=== PATIENT | male | born 1965 | race African-American/Black ===

== ENCOUNTER 2017-05-31 09:21 | Emergency (ER) | payer OTHER ==
--- NOTE | 2017-05-31 09:36 | PDOC ---
History of Present Illness - General History Source: Patient Exam Limitations: No Limitations - History of Present Illness Initial Comments: 05/31/17 11:15 The patient is a 51-year-old male with no significant past medical history, who presents to the emergency department with chest tightness, cough, weakness, and diffuse abdominal pain for 3 days. He reports he passed out this morning in his room, and was laying on the floor when he woke up. He denies head trauma, LOC, or confusion. He reports of associated headache, nausea, as well as subjective fever upon arrival to the ER today. He has been taking marge seltzer and Dayquil. He is able to tolerate food. The patient denies shortness of breath and dizziness. The patient denies chills , rhinorrhea, vomit, diarrhea and constipation. The patient denies dysuria, frequency, urgency and hematuria. Allergies: NKDA Past Surgical History: None reported Social History: No toxic habits reported <Yessi Noguera - Last Filed: 05/31/17 11:14> <Diamante Farah - Last Filed: 05/31/17 11:30> - General Chief Complaint: Vomiting/Diarrhea Stated Complaint: SICK Time Seen by Provider: 05/31/17 09:35 Past History <Yessi Noguera - Last Filed: 05/31/17 11:14> <Diamante Farah - Last Filed: 05/31/17 11:30> - Past Medical History Allergies/Adverse Reactions: Allergies Allergy/AdvReac Type Severity Reaction Status Date / Time No Known Allergies Allergy Verified 05/31/17 09:41 Home Medications: Ambulatory Orders Oseltamivir Phosphate [Tamiflu] 75 mg PO BID #10 capsule 05/31/17 Review of Systems - Review of Systems Able to Perform ROS?: Yes Comments:: 05/31/17 11:15 GENERAL/CONSTITUTIONAL: No fever or chills. (+) Weakness. HEAD, EYES, EARS, NOSE AND THROAT: No change in vision. No ear pain or discharge. No sore throat. CARDIOVASCULAR: (+) Chest pain. No shortness of breath. RESPIRATORY: (+) Cough. No wheezing, or hemoptysis. GASTROINTESTINAL: (+) Nausea. (+) Abdominal pain. No vomiting, diarrhea or constipation. GENITOURINARY: No dysuria, frequency, or change in urination. MUSCULOSKELETAL: No joint or muscle swelling or pain. No neck or back pain. SKIN: No rash NEUROLOGIC: (+) Headache. No vertigo, loss of consciousness, or change in strength/sensation. ENDOCRINE: No increased thirst. No abnormal weight change. HEMATOLOGIC/LYMPHATIC: No anemia, easy bleeding, or history of blood clots. ALLERGIC/IMMUNOLOGIC: No hives or skin allergy. <ChuckieYessi - Last Filed: 05/31/17 11:14> *Physical Exam - Vital Signs Last Vital Signs Temp Pulse Resp BP Pulse Ox 100.0 F H 103 H 18 165/89 100 05/31/17 09:25 05/31/17 09:25 05/31/17 09:25 05/31/17 09:25 05/31/17 09:25 - Physical Exam Comments: 05/31/17 11:15 GENERAL: Awake, alert, and fully oriented, in no acute distress HEAD: No signs of trauma EYES: PERRLA, EOMI, sclera anicteric, conjunctiva clear ENT: Auricles normal inspection, hearing grossly normal, nares patent, oropharynx clear without exudates. Moist mucosa NECK: Normal ROM, supple, no lymphadenopathy, JVD, or masses LUNGS: Breath sounds equal, clear to auscultation bilaterally. No wheezes, and no crackles HEART: Regular rate and rhythm, normal S1 and S2, no murmurs, rubs or gallops ABDOMEN: Soft, nontender, normoactive bowel sounds. No guarding, no rebound. No masses EXTREMITIES: Normal range of motion, no edema. No clubbing or cyanosis. No cords, erythema, or tenderness NEUROLOGICAL: Cranial nerves II through XII grossly intact. Normal speech, normal gait. SKIN: Warm, Dry, normal turgor, no rashes or lesions noted. <Fior Nogueranda - Last Filed: 05/31/17 11:14> ED Treatment Course - LABORATORY CBC & Chemistry Diagram: 05/31/17 09:47 05/31/17 09:47 - ADDITIONAL ORDERS Additional order review: Laboratory Results 05/31/17 09:47 Sodium 138 Potassium 3.3 L Chloride 100 Carbon Dioxide 25 Anion Gap 13 BUN 11 Creatinine 1.4 H Creat Clearance w eGFR 53.01 Random Glucose 107 H Calcium 9.2 Total Bilirubin 0.6 AST 29 ALT 38 Alkaline Phosphatase 56 Creatine Kinase 338 H Creatine Kinase Index 0.2 CK-MB (CK-2) < 1.000 Troponin I < 0.02 Total Protein 7.9 Albumin 3.9 05/31/17 09:47 Influenza Types A,B Antigen (DAVIS) - Final Nasopharyngeal Swab - Final 05/31/17 09:47 RBC 5.32 MCV 85.9 MCHC 34.5 RDW 13.6 MPV 8.7 Neutrophils % 68.4 Lymphocytes % 20.1 Monocytes % 10.2 Eosinophils % 0.6 Basophils % 0.7 - Medications Given in the ED: ED Medications Discontinued Medications Generic Name Dose Route Start Last Admin Trade Name Freq PRN Reason Stop Dose Admin Ketorolac Tromethamine 30 mg 05/31/17 09:43 05/31/17 10:03 Toradol Injection - IVPUSH 05/31/17 09:44 30 mg ONCE ONE Administration Sodium Chloride 1,000 ml 05/31/17 09:43 05/31/17 10:03 Normal Saline - IV 05/31/17 09:44 1,000 ml ONCE ONE Administration <Yessi Noguera - Last Filed: 05/31/17 11:14> - LABORATORY CBC & Chemistry Diagram: 05/31/17 09:47 05/31/17 09:47 <Diamante Farah - Last Filed: 05/31/17 11:30> Medical Decision Making - Medical Decision Making 05/31/17 10:37 Pt presents to the ED complaining of a 4 day history of generalized malaise, mylagias, productive cough, chest tightness and nasal congestion. Also reports episode of syncope. Differential includes flu or other viral infection, PNA, less likely ACS or arrythmia. Will check labs and cxr, EKG and reassess. 05/31/17 11:25 Labs are negative except for influenza. Will treat with tamiflu. Will discharge home. <Diamante Farah - Last Filed: 05/31/17 11:30> *DC/Admit/Observation/Transfer - Attestations Scribe Attestion: 05/31/17 11:16 Documentation prepared by Yessi Noguera, acting as medical officer for Diamante Farah MD, /DO. <Yessi Noguera - Last Filed: 05/31/17 11:14> - Discharge Dispostion Admit: No <Diamante Farah - Last Filed: 05/31/17 11:30> Diagnosis at time of Disposition: Influenza - Discharge Dispostion Disposition: HOME Condition at time of disposition: Good - Prescriptions Prescriptions: Oseltamivir Phosphate [Tamiflu] 75 mg PO BID #10 capsule - Patient Instructions Printed Discharge Instructions: DI for Influenza -- Adult Additional Instructions: return to the Ed for passing out, persistent fever after 6 days, severe abdominal pain, severe nausea and vomiting unable to keep fluids down, other new or changing symptoms. Follow up with your doctor.
[2017-05-31 09:39] VITALS: BMI 31.3
[2017-05-31] MEDS ORDERED: SODIUM CHLORIDE 0.9% 1000 ML INFUS.BAG IV ONE (09:43)
[2017-05-31] MEDS ORDERED: KETOROLAC TROMETHAMINE 30 MG/1 ML VIAL IVPUSH ONE (09:43)
[2017-05-31] MEDS ORDERED: KETOROLAC TROMETHAMINE 30 MG/1 ML VIAL ONE (09:51)
[2017-05-31 10:07] LABS: BASO % 0.7 % (0-2.0); EOS % 0.6 % (0-4.5); HEMATOCRIT 45.7 % (35.4-49); HEMOGLOBIN 15.8 GM/dL (11.7-16.9); LYMPH % 20.1 % (8-40); MCH 29.6 pg (25.7-33.7); MCHC 34.5 g/dl (32.0-35.9); MEAN CELL VOLUME 85.9 fl (80-96); MEAN PLT VOLUME 8.7 fl (7.5-11.1); MONO % 10.2 % (3.8-10.2); NEUT % 68.4 % (42.8-82.8); PLATELET COUNT 164 K/MM3 (134-434); RBC 5.32 M/mm3 (4.00-5.60); RDW 13.6 % (11.9-15.9); WHITE BLOOD COUNT 8.2 K/mm3 (4.0-10.0)
[2017-05-31 10:32] LABS: ALBUMIN 3.9 g/dl (3.4-5.0); ANION GAP 13 (8-16); BILIRUBIN,TOTAL 0.6 mg/dL (0.2-1.0); BLOOD UREA NITROGEN 11 mg/dL (7-18); CALCIUM 9.2 mg/dL (8.5-10.1); CHLORIDE 100 mmol/L (98-107); CO2 25 mmol/L (21-32); CREATININE 1.4 mg/dL (0.7-1.3); GLUCOSE,RANDOM 107 mg/dL (74-106); POTASSIUM 3.3 mmol/L (3.5-5.1); SGOT/AST 29 U/L (15-37); SGPT/ALT 38 U/L (12-78); SODIUM 138 mmol/L (136-145); TOT PROT 7.9 g/dl (6.4-8.2)
[2017-05-31 10:34] LABS: ALK PHOS 56 U/L (45-117)
[2017-05-31] MEDS ORDERED: OSELTAMIVIR PHOSPHATE 75 MG CAPSULE ONE (11:18)
[2017-05-31 11:26] VITALS: BP 149/92; PULSE 93; TEMP 99.9
[2017-05-31] MEDS ORDERED: OSELTAMIVIR PHOSPHATE 75 MG CAPSULE PO ONE (11:30)
--- NOTE | 2017-05-31 14:12 | EKG ---
Test Reason : Blood Pressure : / mmHG Vent. Rate : 105 BPM Atrial Rate : 105 BPM P-R Int : 140 ms QRS Dur : 084 ms QT Int : 346 ms P-R-T Axes : 037 -20 -08 degrees QTc Int : 457 ms SINUS TACHYCARDIA OTHERWISE NORMAL ECG NO PREVIOUS ECGS AVAILABLE BASELINE ARTIFACT Confirmed by ANNA SANCHEZ, RG ([id number]) on 05/31/2017 2:11:34 PM Referred By: Confirmed By:RG CASTILLO MD
== END 2017-05-31 11:47 | disposition home or self-care (01) ==
LOC: JER 09:21
PROC: 3E0333Z Introduction of Anti-inflammatory into Peripheral Vein, Percutaneous Approach (ICD-10-PCS; principal; 2017-05-31)
DX: J10.1 Influenza due to other identified influenza virus with other respiratory manifestations (principal)
CPT/HCPCS: 36415; 71046-TC; 80053; 82550; 82553; 84484; 85025; 87804; 93005; 93010; 99283-25

== ENCOUNTER 2018-06-20 17:15 | Emergency (ER) | payer OTHER ==
--- NOTE | 2018-06-20 17:21 | PDOC ---
Rapid Medical Evaluation Time Seen by Provider: 06/20/18 17:17 Medical Evaluation: Allergies Allergy/AdvReac Type Severity Reaction Status Date / Time No Known Allergies Allergy Verified 05/31/17 09:41 06/20/18 17:18 Pt presents to the ED for dizziness since this morning. States he vomited once. Feels like the room is spinning around him. Exam: No gross neuro deficits Orders: labs Pt to proceed to the ED for further evaluation Discharge Disposition - Diagnosis Dizziness - Referrals - Patient Instructions - Post Discharge Activity
[2018-06-20 17:22] VITALS: BMI 27.5
[2018-06-20] MEDS ORDERED: MECLIZINE HCL 25 MG TABLET (FP) PO ONE (17:47)
--- NOTE | 2018-06-20 18:03 | PDOC ---
History of Present Illness - General Chief Complaint: Lightheaded Stated Complaint: DIZZY Time Seen by Provider: 06/20/18 17:17 History Source: Patient Exam Limitations: No Limitations - History of Present Illness Initial Comments: 06/20/18 17:57 Pt is a 52yo M with no significant PMH presenting to ED with complaints of dizziness. Pt said around 7:30 this am he started feeling like the room was spinning. He went home to sleep it off but he still felt the same way when he woke up. He had one episode of nbnb emesis, endorses fullness and slight tinnitus L>R ear, Headache. He denies trauma, chest pain, SOB, abdominal pain, nausea, syncope, palpitations, fevers, chills. He had a similar symptoms a couple of weeks ago but states he went to sleep and symptoms resolved when he woke up. PMD: [place]? PMH: see hpi Meds: None Allergies: nkda Past History - Past Medical History Allergies/Adverse Reactions: Allergies Allergy/AdvReac Type Severity Reaction Status Date / Time No Known Allergies Allergy Verified 05/31/17 09:41 Home Medications: Ambulatory Orders Oseltamivir Phosphate [Tamiflu] 75 mg PO BID #10 capsule 05/31/17 Meclizine HCl 25 mg PO BID #14 tablet 06/20/18 COPD: No Thyroid Disease: No - Suicide/Smoking/Psychosocial Hx Smoking History: Never smoked Have you smoked in the past 12 months: No Hx Alcohol Use: Yes (Social) Drug/Substance Use Hx: No Substance Use Type: None Review of Systems - Review of Systems Constitutional: No: Chills, Fever, Weakness HEENTM: Yes: See HPI, Tinnitus. No: Eye Pain, Blurred Vision, Double Vision, Ear Pain, Ear Discharge, Nose Pain, Nose Congestion, Hearing Loss, Throat Pain, Mouth Pain Respiratory: No: Cough, Shortness of Breath, Wheezing Cardiac (ROS): No: Chest Pain, Irregular Heart Rate, Lightheadedness, Palpitations, Syncope ABD/GI: Yes: See HPI, Vomiting. No: Constipated, Diarrhea, Nausea, Rectal Bleeding, Abdominal cramping : No: Symptoms Reported Musculoskeletal: No: Back Pain, Neck Pain Integumentary: No: Symptoms Reported Neurological: Yes: See HPI, Headache, Dizziness. No: Numbness, Tingling, Tremors, Weakness, Ataxia *Physical Exam - Vital Signs Last Vital Signs Temp Pulse Resp BP Pulse Ox 98.3 F 76 20 148/93 100 06/20/18 17:16 06/20/18 17:16 06/20/18 17:16 06/20/18 17:16 06/20/18 17:16 - Physical Exam General Appearance: Yes: Nourished, Appropriately Dressed. No: Apparent Distress HEENT: positive: EOMI (illicited feelings of vertigo), RAO, Normal ENT Inspection, TMs Normal, Hearing Grossly Normal, Other (No nystagmus.) Neck: positive: Trachea midline, Supple. negative: Carotid bruit, Lymphadenopathy (R), Lymphadenopathy (L) Respiratory/Chest: positive: Lungs Clear, Normal Breath Sounds. negative: Crackles, Rales, Rhonchi, Stridor, Wheezing Cardiovascular: positive: Regular Rhythm, Regular Rate, S1, S2. negative: Edema , JVD, Murmur Vascular Pulses: Carotid (R): 2+, Carotid (L): 2+, Dorsalis-Pedis (R): 2+, Doralis-Pedis (L): 2+ Gastrointestinal/Abdominal: positive: Normal Bowel Sounds, Soft. negative: Distended, Guarding, Rebound, Tenderness Musculoskeletal: positive: Normal Inspection. negative: CVA Tenderness Extremity: positive: Normal Capillary Refill, Normal Inspection. 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 NML intact, Fully Oriented, Alert, Normal Mood/ Affect, Normal Response, Motor Strength 5/5 Moderate Sedation - Procedure Monitoring Vital Signs: Procedure Monitoring Vital Signs Temperature 98.3 F 06/20/18 17:16 Pulse Rate 76 06/20/18 17:16 Respiratory Rate 20 06/20/18 17:16 Blood Pressure 148/93 06/20/18 17:16 O2 Sat by Pulse Oximetry (%) 100 06/20/18 17:16 ED Treatment Course - LABORATORY CBC & Chemistry Diagram: 06/20/18 18:13 06/20/18 18:13 Medical Decision Making - Medical Decision Making 06/20/18 18:00 Pt is a 52yo M with no significant PMH presenting to ED with complaints of dizziness. Pt said around 7:30 this am he started feeling like the room was spinning. Was here recently and diagnosed with flu. Went to PMD a couple of days ago and was told he might have sinusitis. Not on Abx. Vitals: wnl PE: benign. High suspicion for peripheral vertigo, could be due to labrinthytis. EKG, CBC and CMP ordered by RMMatt. Trop added. Will order CT head and Sinus. -Meclizine and Tylenol. -Will reassess 06/20/18 20:09 CT head and sinus normal. All labs wnl. Pt states "dizziness is gone" after receiving meclizine. Low suspicion for central vertigo. Pt has PMD follow up, is ambulatory and does not have dizziness. Can be dc home. Will give Rx for meclizine. *DC/Admit/Observation/Transfer Diagnosis at time of Disposition: Dizziness - Discharge Dispostion Disposition: HOME Condition at time of disposition: Improved Decision to Admit order: No - Prescriptions Prescriptions: Meclizine HCl 25 mg PO BID #14 tablet - Referrals Referrals: [facility] [Non Staff, Medical] - - Patient Instructions Printed Discharge Instructions: Vertigo Additional Instructions: You were seen in the emergency room for dizziness. You have vertigo. A prescription for meclizine was sent to your pharmacy. Please take as directed when you experience vertigo. Make sure you make an appointment with your primary care doctor soon. Come back to the emergency room if the dizziness gets worse, you pass out, you have weakness in your arms or legs, you have changes in vision, you have chest pain or if any new concerning symptom develops. Thank you - Post Discharge Activity
[2018-06-20 18:23] LABS: BASO % 0.3 % (0-2.0); EOS % 1.8 % (0-4.5); HEMATOCRIT 46.3 % (35.4-49); LYMPH % 26.1 % (8-40); MCH 30.3 pg (25.7-33.7); MCHC 34.6 g/dl (32.0-35.9); MEAN CELL VOLUME 87.7 fl (80-96); MEAN PLT VOLUME 8.5 fl (7.5-11.1); MONO % 5.2 % (3.8-10.2); NEUT % 66.6 % (42.8-82.8); PLATELET COUNT 217 K/MM3 (134-434); RBC 5.28 M/mm3 (4.00-5.60); RDW 13.4 % (11.9-15.9); WHITE BLOOD COUNT 10.2 K/mm3 (4.0-10.0)
[2018-06-20] MEDS ORDERED: ACETAMINOPHEN 500 MG TABLET (FP) PO ONE (18:42)
[2018-06-20 18:46] LABS: ALBUMIN 3.9 g/dl (3.4-5.0); ALK PHOS 57 U/L (45-117); ANION GAP 8 MMOL/L (8-16); BILIRUBIN,TOTAL 0.5 mg/dL (0.2-1); BLOOD UREA NITROGEN 14 mg/dL (7-18); CALCIUM 8.7 mg/dL (8.5-10.1); CHLORIDE 106 mmol/L (98-107); CO2 27 mmol/L (21-32); CREATININE 1.1 mg/dL (0.55-1.3); GLUCOSE,RANDOM 136 mg/dL (74-106); POTASSIUM 3.5 mmol/L (3.5-5.1); SGOT/AST 22 U/L (15-37); SGPT/ALT 38 U/L (13-61); SODIUM 141 mmol/L (136-145); TOT PROT 7.5 g/dl (6.4-8.2)
[2018-06-20] MEDS ORDERED: ACETAMINOPHEN 325 MG TABLET (FP) ONE (19:02)
[2018-06-20] MEDS ORDERED: MECLIZINE HCL 25 MG TABLET (FP) ONE (19:03)
--- NOTE | 2018-06-20 19:09 | PDOC ---
Attending Attestation - [facility] HPI: 06/20/18 19:09 The patient is a 52 year old male, with no significant past medical hx, who presents to the emergency department complaining of dizziness that he describes as a spinning feeling, that began at 7:30 am today. The patient reports 1 episode of vomiting, nonbilious and nonbloody, and mild headache.The patient notes that he tried to sleep but it did not alleviate his presenting symptoms. The patient reports a similar experience two weeks ago where he felt the room spinning, however sleep did alleviate the prior symptoms.The patient notes he is experiencing associated fullness and ringing in his LT ear. Patient denies numbness and paresthesia. He denies vision changes. He denies any recent fever, chills, or recent cold. He denies any head trauma or neck pain. He denies any recent chest pain, shortness of breath, or syncopal episode. Allergies: NKA Past surgical history: None reported. Social History: Nonsmoker. Denies EtOH use and recreational drug use - Physicial Exam PE: 06/20/18 19:10 GENERAL: Well developed, well nourished. Awake and alert. No acute distress. HEENT: Normocephalic, atraumatic. PERRLA, EOMI. No conjunctival pallor. Sclera are non- icteric. Moist mucous membranes. Oropharynx is clear. NECK: Supple. Full ROM. No JVD. Carotid pulses 2+ and symmetric, without bruits. No thyromegaly. No lymphadenopathy. CARDIOVASCULAR: Regular rate and rhythm. No murmurs, rubs, or gallops. Distal pulses are 2+ and symmetric. PULMONARY: No evidence of respiratory distress. Lungs clear to auscultation bilaterally. No wheezing, rales or rhonchi. ABDOMINAL: Soft. Non-tender. Non-distended. No rebound or guarding. No organomegaly. Normoactive bowel sounds. MUSCULOSKELETAL Normal range of motion at all joints. No bony deformities or tenderness. No CVA tenderness. EXTREMITIES: No cyanosis. No clubbing. No edema. No calf tenderness. SKIN: Warm and dry. Normal capillary refill. No rashes. No jaundice. NEUROLOGICAL: Alert, awake, appropriate. Cranial nerves 2-12 intact. No deficits to light touch and temperature in face, upper extremities and lower extremities. No motor deficits in the in face, upper extremities and lower extremities. Normoreflexic in the upper and lower extremities. Normal speech. Toes are down- going bilaterally. No nystagmus. PSYCHIATRIC: Cooperative. Good eye contact. Appropriate mood and affect. <Tonia Blank - Last Filed: 06/20/18 19:09> - Resident Resident Name: Emily Ward - ED Attending Attestation I have performed the following: I have examined & evaluated the patient, The case was reviewed & discussed with the resident, I agree w/resident's findings & plan, Exceptions are as noted - Medical Decision Making 06/20/18 19:12 52-year-old male presents with cold complaint of the room spinning associated with episode of nausea and vomiting. He said that he was so severe he couldn't walk and he could not drive himself. He went home to bed to sleep it off because several weeks ago he had a prior episode that resolved after he has had for some time. He denies fever, chills or severe upper respiratory infections or nasal congestion. Please see his physician in the past week for a routine physical exam 06/20/18 20:02 CAT scan of the sinuses showed some ethmoidal thickening with there was no acute sinusitis noted. CAT scan of the head did not show any acute intracranial pathology, no masses, no infarct, no bleed, no midline shift, no skull fracture 06/20/18 20:02 CBC was unremarkable. Chemistries were reviewed, and glucose slightly elevated at 136. his prior glucose was 107 Prior creatinine was 1.4 and today's creatinine is 1.1. Troponin is negative 06/20/18 20:44 pt;s symptoms resolved with antivert and pt discharged home imp VERTIGO <Radha Gunter - Last Filed: 06/20/18 20:46> Attestations - Attestations 06/20/18 19:11 Documentation prepared by Tonia Blank, acting as medical records field technician for Radha Gunter MD. <Tonia Blank - Last Filed: 06/20/18 19:09>
[2018-06-20 20:37] VITALS: BP 130/86; PULSE 70; TEMP 98.2
--- NOTE | 2018-06-21 16:45 | EKG ---
Test Reason : Blood Pressure : / mmHG Vent. Rate : 080 BPM Atrial Rate : 080 BPM P-R Int : 146 ms QRS Dur : 090 ms QT Int : 382 ms P-R-T Axes : 061 -21 006 degrees QTc Int : 440 ms NORMAL SINUS RHYTHM LEFT ATRIAL ENLARGEMENT NONSPECIFIC ST ABNORMALITY ABNORMAL ECG Confirmed by MD OLYA, RENETTA ([id number]) on 06/21/2018 4:45:35 PM Referred By: Confirmed By:RENETTA DOBSON MD
== END 2018-06-20 20:37 | disposition home or self-care (01) ==
LOC: JER 17:15
DX: R42 Dizziness and giddiness (principal)
CPT/HCPCS: 36415; 70450-TC; 70486-TC; 80053; 84484; 85025; 93005; 93010; 99282-25

== ENCOUNTER 2018-11-24 00:28 | Emergency (ER) | payer OTHER ==
[2018-11-24 01:06] VITALS: BMI 28.1
--- NOTE | 2018-11-24 01:39 | PDOC ---
History of Present Illness - General Chief Complaint: Pain, Acute Stated Complaint: PAIN, LT SIDE Time Seen by Provider: 11/24/18 01:28 History Source: Patient Exam Limitations: No Limitations - History of Present Illness Initial Comments: 52 yo m who denies having any medical hx presents to the ER with 4 days of worsening LLQ Abdominal pain. The patient states the pain is on and off and when it comes on it is a 9/10 in intensity and he describes the pain as a sharp burning sensation in character. The patient states the pain does not radiate to his flank or down to his groin. the patient denies any nausea or vomiting. He endorses 3 episodes of diarrhea since Wednesday when the pain began. The patient denies recent fevers, chills, or infections. Last bowel movement was this morning and it was loose. PCP: Does not remember name. States he is across the street at [facility]. PSH: None reported Social Hx: Drinks recreationally. Smokes cigars. Denies cigarette or other substance usage. Allergies: NKA, NKDA Past History - Past Medical History Allergies/Adverse Reactions: Allergies Allergy/AdvReac Type Severity Reaction Status Date / Time No Known Allergies Allergy Verified 11/24/18 01:10 Home Medications: Ambulatory Orders NK [No Known Home Medication] 11/24/18 COPD: No Thyroid Disease: No - Suicide/Smoking/Psychosocial Hx Smoking History: Never smoked Have you smoked in the past 12 months: No Information on smoking cessation initiated: No Hx Alcohol Use: No Drug/Substance Use Hx: No Substance Use Type: None Review of Systems - Review of Systems Able to Perform ROS?: Yes Comments:: CONSTITUTIONAL: Absent: fever, no chills, no fatigue EYES: Absent: visual changes ENT: Absent: ear pain, no sore throat CARDIOVASCULAR: Absent: chest pain, no palpitations RESPIRATORY: Absent: cough, no SOB GI: Present: Abdominal pain, diarrhea. Absent: no nausea, no vomiting, no constipation GENITOURINARY: Absent: dysuria, no frequency, no hematuria MUSKULOSKELETAL: Absent: back pain, no arthralgia, no myalgia SKIN: Absent: rash NEURO: Absent: headache *Physical Exam - Vital Signs Last Vital Signs Temp Pulse Resp BP Pulse Ox 99 F 89 19 155/99 11/24/18 00:28 11/24/18 00:28 11/24/18 00:28 11/24/18 00:28 - Physical Exam Comments: GENERAL: Well-appearing, well-nourished. No apparent distress. HEENT: Normocephalic, atraumatic. PERRL, EOM intact. CARDIOVASCULAR: Normal S1, S2. Regular rate and rhythm. PULMONARY: No evidence of respiratory distress. Lungs clear to auscultation bilaterally. No wheezing, rales or rhonchi. ABDOMEN: Mild LLQ abdominal TTP. Normal bowel sounds. Abdomen is soft and non-distended. No rebound or guarding. No organomegaly. EXTREMITIES: Normal ROM in all four extremities. No gross deformities. SKIN: Warm, dry. No rash NEUROLOGICAL: No focal neurological deficits. ED Treatment Course - LABORATORY CBC & Chemistry Diagram: 11/24/18 02:14 11/24/18 02:14 Medical Decision Making - Medical Decision Making 52 yo m who denies having any medical hx presents to the ER with 4 days of worsening LLQ Abdominal pain. The patient states the pain is on and off and when it comes on it is a 9/10 in intensity and he describes the pain as a sharp burning sensation in character. The patient states the pain does not radiate to his flank or down to his groin. the patient denies any nausea or vomiting. He endorses 3 episodes of diarrhea since Wednesday when the pain began. The patient denies recent fevers, chills, or infections. Last bowel movement was this morning and it was loose. Vital Signs Temp Pulse Resp BP Pulse Ox 98.1 F 83 18 159/95 96 11/24/18 01:05 11/24/18 01:05 11/24/18 01:05 11/24/18 01:05 11/24/18 01:05 DDx IBNLT: Diverticulitis, Colitis, UTI/Pylo, renal colic, electrolyte/ metabolic disturbance Plan: Labs, Urine, EKG, CTAP, analgesia, IV hydration, re-assess. Labs unremarkable CTAP: Suggests mesenteric adenitis Will DC patient with PCP fu *DC/Admit/Observation/Transfer Diagnosis at time of Disposition: Abdominal pain, Mesenteric adenitis, Colitis - Discharge Dispostion Disposition: HOME Condition at time of disposition: Improved Decision to Admit order: No - Referrals Referrals: [facility] [place] [Provider Group] - Patient Instructions Printed Discharge Instructions: DI for Mesenteric Adenitis-Adult, DI for Abdominal Pain-Adult, DI for Colitis Additional Instructions: You came into the ER with abdominal pain. We looked at your blood and found no abnormalities. We did a cat scan which showed your mesenteric lymph nodes are inflamed. You likely have mesenteric adenitis. Please see attached handout for further explanation. Please make sure to follow up with your PCP in the next 3 to 5 days to make sure you are getting better and being taken care of. Come back to the ER immediately if your pain worsens, you get a fever, start vomiting, or have any other new or worsening concerns. Thank you for coming to the [facility] ER. We hope you feel better soon! Print Language: IRISH - Post Discharge Activity
[2018-11-24 01:44] VITALS: BP 159/95; PULSE 83; TEMP 98.1
--- NOTE | 2018-11-24 01:45 | PDOC ---
Attending Attestation - Resident Resident Name: Lexa Gamboa - ED Attending Attestation I have performed the following: I have examined & evaluated the patient, I agree w/resident's findings & plan - HPI HPI: 11/24/18 02:47 52-year-old male with left lower quadrant abdominal pain and diarrhea - Physicial Exam PE: 11/24/18 02:48 GENERAL: Awake, in no acute distress HEAD: No signs of trauma EYES: ENT:clear without exudates. Moist mucosa NECK: Normal ROM, LUNGS:. Normal work of breathing. HEART: Regular rate and rhythm, ABDOMEN: Soft, nondistended , tenderness llq with voluntary guarding CHEST WALL: BACK: No midline tenderness. EXTREMITIES:. No erythema, or tenderness NEUROLOGICAL: Alert, SKIN: Warm, Dry - Medical Decision Making 11/24/18 02:48 52-year-old male with left lower quadrant abdominal pain, IV fluids, analgesics Plan for CT scan and labs to evaluate for surgical cause of pain with likely DC home pending results
[2018-11-24] MEDS ORDERED: SODIUM CHLORIDE 1,000 ML IV STA (01:49)
[2018-11-24] MEDS ORDERED: ACETAMINOPHEN 325 MG TABLET (FP) PO ONE (01:50)
[2018-11-24 02:26] LABS: EPI CELLS 0.5 /HPF (0-5/HPF); HYALINE CASTS 2 /lpf (0-8); URINE APPEARANCE CLEAR; URINE BACTERIA 2.4 /hpf (NEGATIVE); URINE BILIRUBIN NEGATIVE (NEGATIVE); URINE COLOR YELLOW; URINE GLUCOSE (UA) NEGATIVE (NEGATIVE); URINE KETONE NEGATIVE (NEGATIVE); URINE LEUK ESTERASE NEGATIVE (NEGATIVE); URINE NITRITE NEGATIVE (NEGATIVE); URINE PROTEIN NEGATIVE (NEGATIVE); URINE RBC 8 /hpf (0-4); URINE UROBILINOGEN 0.2 mg/dL (0.2-1.0); URINE WBC 1 /hpf (0-5)
[2018-11-24 02:42] LABS: BASO % 0.6 % (0-2.0); EOS % 1.7 % (0-4.5); HEMATOCRIT 46.8 % (35.4-49); HEMOGLOBIN 15.7 GM/dL (11.7-16.9); MCH 29.6 pg (25.7-33.7); MCHC 33.6 g/dl (32.0-35.9); MEAN CELL VOLUME 88.1 fl (80-96); MEAN PLT VOLUME 9.1 fl (7.5-11.1); MONO % 9.5 % (3.8-10.2); NEUT % 65.2 % (42.8-82.8); PLATELET COUNT 178 K/MM3 (134-434); RBC 5.31 M/mm3 (4.00-5.60); RDW 13.7 % (11.9-15.9); WHITE BLOOD COUNT 7.8 K/mm3 (4.0-10.0)
[2018-11-24] MEDS ORDERED: ACETAMINOPHEN 325 MG TABLET (FP) ONE (02:45)
[2018-11-24 02:52] LABS: ALBUMIN 4.2 g/dl (3.4-5.0); ALK PHOS 60 U/L (45-117); ANION GAP 6 MMOL/L (8-16); BILIRUBIN,TOTAL 0.4 mg/dL (0.2-1); BLOOD UREA NITROGEN 13.4 mg/dL (7-18); CALCIUM 9.2 mg/dL (8.5-10.1); CHLORIDE 106 mmol/L (98-107); CO2 30 mmol/L (21-32); CREATININE 1.3 mg/dL (0.55-1.3); GLUCOSE,RANDOM 93 mg/dL (74-106); LIPASE 94 U/L (73-393); POTASSIUM 3.6 mmol/L (3.5-5.1); SGOT/AST 23 U/L (15-37); SGPT/ALT 32 U/L (13-61); SODIUM 142 mmol/L (136-145); TOT PROT 8.1 g/dl (6.4-8.2)
[2018-11-24 02:53] LABS: INR 1.1 (0.83-1.09)
[2018-11-24] MEDS ORDERED: KETOROLAC TROMETHAMINE 30 MG/1 ML VIAL IVPUSH ONE (04:27)
[2018-11-24] MEDS ORDERED: KETOROLAC TROMETHAMINE 30 MG/1 ML VIAL ONE (04:54)
--- NOTE | 2018-11-24 13:38 | EKG ---
Test Reason : Blood Pressure : / mmHG Vent. Rate : 086 BPM Atrial Rate : 086 BPM P-R Int : 144 ms QRS Dur : 086 ms QT Int : 384 ms P-R-T Axes : 048 -26 005 degrees QTc Int : 459 ms NORMAL SINUS RHYTHM NORMAL ECG WHEN COMPARED WITH ECG OF 20-JUN-2018 17:41, NO SIGNIFICANT CHANGE WAS FOUND Confirmed by MELBA PORTER MD ([id number]) on 11/24/2018 1:37:54 PM Referred By: Confirmed By:MELBA PORTER MD
== END 2018-11-24 05:08 | disposition home or self-care (01) ==
LOC: JER 00:28
PROC: 3E0337Z Introduction of Electrolytic and Water Balance Substance into Peripheral Vein, Percutaneous Approach (ICD-10-PCS; principal; 2018-11-24)
PROC: 3E0333Z Introduction of Anti-inflammatory into Peripheral Vein, Percutaneous Approach (ICD-10-PCS; 2018-11-24)
DX: I88.0 Nonspecific mesenteric lymphadenitis (principal); K52.9 Noninfective gastroenteritis and colitis, unspecified
CPT/HCPCS: 36415; 74177-TC; 80053; 81003; 82550; 82553; 83605; 83690; 84484; 85025; 85610; 86850; 86900; 86901; 93005; 93010; 99282-25; J7030

== ENCOUNTER 2019-01-30 18:22 | Emergency (ER) | payer OTHER ==
[2019-01-30] MEDS ORDERED: ASPIRIN 81 MG CHEWABLE TABLETS PO ONE ×2 (18:36→21:02)
--- NOTE | 2019-01-30 18:36 | PDOC ---
Rapid Medical Evaluation Time Seen by Provider: 01/30/19 18:34 Medical Evaluation: Allergies Allergy/AdvReac Type Severity Reaction Status Date / Time No Known Allergies Allergy Verified 01/30/19 18:34 01/30/19 18:34 HPI:Chest pain x6 days PE: No gross deficits ORDERS: Cardiac work up Discharge Disposition - Diagnosis Chest pain - Referrals - Patient Instructions - Post Discharge Activity
[2019-01-30 18:38] VITALS: TEMP 98.4; BMI 28.4
[2019-01-30] MEDS ORDERED: ASPIRIN 81 MG CHEWABLE TABLETS ONE ×2 (20:01→21:14)
[2019-01-30 20:36] LABS: BASO % 0.7 % (0-2.0); EOS % 1.4 % (0-4.5); HEMATOCRIT 43.2 % (35.4-49); HEMOGLOBIN 14.5 GM/dL (11.7-16.9); LYMPH % 31.2 % (8-40); MCH 29.7 pg (25.7-33.7); MCHC 33.6 g/dl (32.0-35.9); MEAN CELL VOLUME 88.3 fl (80-96); MEAN PLT VOLUME 8.8 fl (7.5-11.1); MONO % 5.7 % (3.8-10.2); PLATELET COUNT 200 K/MM3 (134-434); RBC 4.89 M/mm3 (4.00-5.60); WHITE BLOOD COUNT 8.6 K/mm3 (4.0-10.0)
[2019-01-30 20:54] LABS: ALBUMIN 4.1 g/dl (3.4-5.0); BILIRUBIN,TOTAL 0.3 mg/dL (0.2-1); BLOOD UREA NITROGEN 18.7 mg/dL (7-18); CALCIUM 9.7 mg/dL (8.5-10.1); CREATININE 1.2 mg/dL (0.55-1.3); MAGNESIUM 2.7 mg/dL (1.8-2.4); POTASSIUM 3.8 mmol/L (3.5-5.1); TOT PROT 7.7 g/dl (6.4-8.2)
--- NOTE | 2019-01-30 20:56 | PDOC ---
History of Present Illness - General Chief Complaint: Chest Pain Stated Complaint: CHEST PAIN Time Seen by Provider: 01/30/19 18:34 History Source: Patient Exam Limitations: No Limitations - History of Present Illness Initial Comments: 01/30/19 21:00 53 yo M with a hx of HTN presents to the emergency department with chest pain for 6 days with acute worsening today. Per the patient, he states it was sudden onset on Wednesday while at rest. Worsens with exertions, lasting minutes to hours , occurring multiples times throughout the day. Located bilateral chest wall with concurrent but denies radiation of the upper back bilaterally. Endorses nausea, SOB, diaphoresis, and lightheadedness. States it relieved with aspirin given today. Denies familial cardiac history and does not smoke. Allergies: NKDA 01/30/19 21:00 01/30/19 21:03 Past History - Past Medical History Allergies/Adverse Reactions: Allergies Allergy/AdvReac Type Severity Reaction Status Date / Time No Known Allergies Allergy Verified 01/30/19 18:34 Home Medications: Ambulatory Orders NK [No Known Home Medication] 11/24/18 COPD: No Thyroid Disease: No - Suicide/Smoking/Psychosocial Hx Smoking History: Current some day smoker Have you smoked in the past 12 months: No Cigars Per Day: 1 Information on smoking cessation initiated: No Hx Alcohol Use: No Drug/Substance Use Hx: No Substance Use Type: None *Physical Exam - Vital Signs Last Vital Signs Temp Pulse Resp BP Pulse Ox 98.4 F 82 16 147/96 97 01/30/19 18:34 01/30/19 18:34 01/30/19 18:34 01/30/19 18:34 01/30/19 18:34 ED Treatment Course - LABORATORY CBC & Chemistry Diagram: 01/30/19 20:00 01/30/19 20:08 - ADDITIONAL ORDERS Additional order review: Laboratory Results 01/30/19 20:08 Sodium 141 Potassium 3.8 Chloride 106 Carbon Dioxide 29 Anion Gap 6 L BUN 18.7 H Creatinine 1.2 Est GFR (CKD-EPI)AfAm 78.43 Est GFR (CKD-EPI)NonAf 67.67 Random Glucose 84 Calcium 9.7 Magnesium 2.7 H Total Bilirubin 0.3 AST 21 ALT 26 Alkaline Phosphatase 46 Total Protein 7.7 Albumin 4.1 01/30/19 20:00 RBC 4.89 MCV 88.3 MCHC 33.6 RDW 14.0 MPV 8.8 Neutrophils % 61.0 Lymphocytes % 31.2 D Monocytes % 5.7 Eosinophils % 1.4 Basophils % 0.7 - Medications Given in the ED: ED Medications Discontinued Medications Generic Name Dose Route Start Last Admin Trade Name Raul PRN Reason Stop Dose Admin Aspirin 162 mg 01/30/19 18:36 01/30/19 20:04 Asa - PO 01/30/19 18:37 162 mg ONCE ONE Administration *DC/Admit/Observation/Transfer Diagnosis at time of Disposition: Chest pain - Discharge Dispostion Disposition: HOME Decision to Admit order: No - Referrals Referrals: Azam Mckeon MD [Staff Physician] - - Patient Instructions Printed Discharge Instructions: DI for Atypical Chest Pain, DI for Chest Pain Additional Instructions: You were seen for your chest pain. Please follow up with your primary medical doctor and the sld teacher referred to you within 3 days after discharge. Your EKG was within normal limits but you had a 0.08 troponin both times showing some cardiac injury but not damage. Please return to the emergency department if you have worsening pain, thank you. - Post Discharge Activity Forms/Work/School Notes: Back to Work
[2019-01-30 20:59] LABS: INR 1.08 (0.83-1.09); PROTHROMBIN TIME (PATIENT) 12.7 SEC (9.7-13.0)
--- NOTE | 2019-01-30 21:11 | PDOC ---
Documentation entered by Yessi Wilson SCRIBE, acting as scribe for Radha Gunter MD. Radha Gunter MD: This documentation has been prepared by the Katie quintero Brenda, SCRIBE, under my direction and personally reviewed by me in its entirety. I confirm that the documentation accurately reflects all work, treatment, procedures, and medical decision making performed by me. Attending Attestation - Resident Resident Name: Chris Benton - ED Attending Attestation I have performed the following: I have examined & evaluated the patient, The case was reviewed & discussed with the resident, I agree w/resident's findings & plan, Exceptions are as noted - HPI HPI: 01/30/19 20:15 The patient is a 52 year old male, with no significant past medical hx, who presents to the emergency department with 6 days of chest pain. PCP: Does not remember name. Across the street at [facility]. PSH: None reported Social Hx: Drinks recreationally. Smokes cigars. Denies cigarette or other substance usage. Allergies: NKA, NKDA - Physicial Exam PE: 01/30/19 21:[address] Benton's physical exam - Medical Decision Making 01/30/19 21:10 presents with chest pain for 6 days 01/30/19 22:07 troponin=0.08 EKG is normal sinus rhythm with no signs of any ischemia chemistries show normal renal function, normal liver function tests, normal electrolytes pmh none plan chest x-ray and second troponin no family h/o early cardiac demise. Patient does not use tobacco 01/30/19 23:45 cxr no change since May 2018 cxr, no infiltrates,no chf, no ptx,normal cardiac silhouette both trop 0.08 will d/c home pt told to see his PCP at [facility] and have an echo and stress test as outpt
[2019-01-30 23:20] VITALS: BP 141/96; PULSE 67
--- NOTE | 2019-01-31 12:44 | EKG ---
Test Reason : Blood Pressure : / mmHG Vent. Rate : 085 BPM Atrial Rate : 085 BPM P-R Int : 158 ms QRS Dur : 090 ms QT Int : 374 ms P-R-T Axes : 052 -22 008 degrees QTc Int : 445 ms NORMAL SINUS RHYTHM POSSIBLE LEFT ATRIAL ENLARGEMENT BORDERLINE ECG WHEN COMPARED WITH ECG OF 24-NOV-2018 02:16, NO SIGNIFICANT CHANGE WAS FOUND Confirmed by Grayson Mitchell MD ([id number]) on 01/31/2019 12:44:09 PM Referred By: Confirmed By:Grayson Mitchell MD
== END 2019-01-31 | disposition home or self-care (01) ==
LOC: JER 18:22
DX: R07.9 Chest pain, unspecified (principal)
CPT/HCPCS: 36415; 71046-TC-FY; 80053; 82550; 82553; 83735; 84484; 85025; 85610; 93005; 93010; 99283-25

== ENCOUNTER 2019-02-02 16:45 | Observation (INO) | payer OTHER ==
[2019-02-02] MEDS ORDERED: ASPIRIN 81 MG CHEWABLE TABLETS PO ONE (17:00)
--- NOTE | 2019-02-02 17:00 | PDOC ---
Rapid Medical Evaluation Time Seen by Provider: 02/02/19 16:58 Medical Evaluation: Allergies Allergy/AdvReac Type Severity Reaction Status Date / Time No Known Allergies Allergy Verified 01/30/19 18:34 02/02/19 16:58 I have performed a brief in-person evaluation of this patient. The patient presents with a chief complaint of: chest pain since Wednesday- seen here at that time Pertinent physical exam findings: no focal findings. Unable to perform exercise stress test. Needs Prior Auth for nuclear stress test I have ordered the following: Labs, EKG The patient will proceed to the ED for further evaluation. Discharge Disposition - Diagnosis Chest pain - Referrals - Patient Instructions - Post Discharge Activity
[2019-02-02 17:01] VITALS: BMI 28.4
[2019-02-02 18:04] LABS: BASO % 0.7 % (0-2.0); EOS % 2.3 % (0-4.5); HEMATOCRIT 46.4 % (35.4-49); HEMOGLOBIN 15.7 GM/dL (11.7-16.9); LYMPH % 25.3 % (8-40); MCH 29.9 pg (25.7-33.7); MCHC 33.8 g/dl (32.0-35.9); MEAN CELL VOLUME 88.3 fl (80-96); MEAN PLT VOLUME 8.4 fl (7.5-11.1); NEUT % 65.7 % (42.8-82.8); PLATELET COUNT 207 K/MM3 (134-434); RBC 5.26 M/mm3 (4.00-5.60); RDW 13.8 % (11.9-15.9); WHITE BLOOD COUNT 9.2 K/mm3 (4.0-10.0)
[2019-02-02 18:07] LABS: EPI CELLS 0.8 /HPF (0-5/HPF); HYALINE CASTS 3 /lpf (0-8); URINE APPEARANCE CLEAR; URINE BILIRUBIN NEGATIVE (NEGATIVE); URINE COLOR YELLOW; URINE GLUCOSE (UA) NEGATIVE (NEGATIVE); URINE KETONE NEGATIVE (NEGATIVE); URINE LEUK ESTERASE NEGATIVE (NEGATIVE); URINE NITRITE NEGATIVE (NEGATIVE); URINE PROTEIN NEGATIVE (NEGATIVE); URINE RBC 21 /hpf (0-4); URINE WBC 1 /hpf (0-5)
[2019-02-02 18:16] LABS: INR 1.06 (0.83-1.09); PROTHROMBIN TIME (PATIENT) 12.5 SEC (9.7-13.0)
[2019-02-02 18:29] LABS: ALBUMIN 4.1 g/dl (3.4-5.0); BILIRUBIN,TOTAL 0.4 mg/dL (0.2-1); BLOOD UREA NITROGEN 13.6 mg/dL (7-18); CALCIUM 9.7 mg/dL (8.5-10.1); CREATININE 1.1 mg/dL (0.55-1.3); MAGNESIUM 2.6 mg/dL (1.8-2.4); POTASSIUM 3.7 mmol/L (3.5-5.1); TOT PROT 7.8 g/dl (6.4-8.2)
[2019-02-02] MEDS ORDERED: ASPIRIN 81 MG CHEWABLE TABLETS ONE (18:53)
--- NOTE | 2019-02-02 19:15 | PDOC ---
History of Present Illness - General Chief Complaint: Chest Pain Stated Complaint: CHEST PAIN Time Seen by Provider: 02/02/19 16:58 History Source: Patient Exam Limitations: No Limitations Past History - Travel Traveled outside of the country in the last 30 days: No Close contact w/someone who was outside of country & ill: No - Past Medical History Allergies/Adverse Reactions: Allergies Allergy/AdvReac Type Severity Reaction Status Date / Time No Known Allergies Allergy Verified 02/02/19 17:01 Home Medications: Ambulatory Orders NK [No Known Home Medication] 11/24/18 COPD: No Thyroid Disease: No Other medical history: stress test 02/01/19 - Suicide/Smoking/Psychosocial Hx Smoking History: Never smoked Have you smoked in the past 12 months: No Cigars Per Day: 1 Information on smoking cessation initiated: No Hx Alcohol Use: No Drug/Substance Use Hx: No Substance Use Type: None Review of Systems - Review of Systems Able to Perform ROS?: Yes Comments:: 02/02/19 20:32 CONSTITUTIONAL: Absent: fever, chills, diaphoresis, generalized weakness, malaise, loss of appetite HEENT: Absent: rhinorrhea, nasal congestion, throat pain, throat swelling, difficulty swallowing, mouth swelling, ear pain, eye pain, visual Changes CARDIOVASCULAR: Present: chest pain, lightheadedness Absent: loss of consciousness, palpitations , irregular heart rate, peripheral edema RESPIRATORY: Absent: cough, shortness of breath, dyspnea with exertion, orthopnea, wheezing, stridor, hemoptysis GASTROINTESTINAL: Absent: abdominal pain, abdominal distension, nausea, vomiting, diarrhea, constipation, melena, hematochezia GENITOURINARY: Absent: dysuria, frequency, urgency, hesitancy, hematuria, flank pain, genital pain MUSCULOSKELETAL: Absent: myalgia, arthralgia, joint swelling SKIN: Absent: rash, itching, pallor HEMATOLOGIC/IMMUNOLOGIC: Absent: easy bleeding, easy bruising, lymphadenopathy, frequent infections ENDOCRINE: Absent: unexplained weight gain, unexplained weight loss, heat intolerance, cold intolerance NEUROLOGIC: Absent: headache, focal weakness or paresthesias, dizziness, unsteady gait, seizure, mental status changes, bladder or bowel incontinence PSYCHIATRIC: Absent: anxiety, depression, suicidal or homicidal ideation, hallucinations. Is the patient limited [place]ic proficient: No *Physical Exam - Vital Signs Last Vital Signs Temp Pulse Resp BP Pulse Ox 98.5 F 76 19 136/94 96 02/02/19 16:58 02/02/19 16:58 02/02/19 16:58 02/02/19 16:58 02/02/19 16:58 - Physical Exam Comments: 02/02/19 20:33 GENERAL: Well developed, well nourished. Awake and alert. No acute distress. HEENT: Normocephalic, atraumatic. PERRLA, EOMI. No conjunctival pallor. Sclera are non- icteric. Moist mucous membranes. Oropharynx is clear. NECK: Supple. Full ROM. No JVD. Carotid pulses 2+ and symmetric, without bruits. No thyromegaly. No lymphadenopathy. CARDIOVASCULAR: Regular rate and rhythm. No murmurs, rubs, or gallops. Distal pulses are 2+ and symmetric. PULMONARY: No evidence of respiratory distress. Lungs clear to auscultation bilaterally. No wheezing, rales or rhonchi. ABDOMINAL: Soft. Non-tender. Non-distended. No rebound or guarding. No organomegaly. Normoactive bowel sounds. MUSCULOSKELETAL Normal range of motion at all joints. No bony deformities or tenderness. No CVA tenderness. EXTREMITIES: No cyanosis. No clubbing. No edema. No calf tenderness. SKIN: Warm and dry. Normal capillary refill. No rashes. No jaundice. NEUROLOGICAL: Alert, awake, appropriate. Cranial nerves 2-12 intact. No deficits to light touch and temperature in face, upper extremities and lower extremities. No motor deficits in the in face, upper extremities and lower extremities. Normoreflexic in the upper and lower extremities. Normal speech. Toes are down- going bilaterally. Gait is normal without ataxia. PSYCHIATRIC: Cooperative. Good eye contact. Appropriate mood and affect. Heart Score/ECG Review - History History: Moderately suspicious - Electrocardiogram EKG: Normal - Age Age: 45-65 - Risk Factors Based on the list above the patient has:: No risk factors known - Troponin Troponin: </= normal limit - Score Heart Score - Total: 2 ED Treatment Course - LABORATORY CBC & Chemistry Diagram: 02/02/19 17:52 02/02/19 17:52 - ADDITIONAL ORDERS Additional order review: Laboratory Results 02/02/19 02/02/19 02/02/19 17:52 17:52 17:52 PT with INR 12.50 INR 1.06 Sodium 139 Potassium 3.7 Chloride 105 Carbon Dioxide 29 Anion Gap 6 L BUN 13.6 Creatinine 1.1 Est GFR (CKD-EPI)AfAm 87.13 Est GFR (CKD-EPI)NonAf 75.17 Random Glucose 75 Calcium 9.7 Magnesium 2.6 H Total Bilirubin 0.4 AST 26 ALT 24 Alkaline Phosphatase 52 Total Protein 7.8 Albumin 4.1 Urine Color Yellow Urine Appearance Clear Urine pH 6.0 Ur Specific [place] 1.025 Urine Protein Negative Urine Glucose (UA) Negative Urine Ketones Negative Urine Blood 2+ H Urine Nitrite Negative Urine Bilirubin Negative Urine Urobilinogen 1.0 Ur Leukocyte Esterase Negative Urine WBC (Auto) 1 Urine RBC (Auto) 21 Urine Casts (Auto) 3 U Epithel Cells (Auto) 0.8 Urine Bacteria (Auto) 3.0 02/02/19 17:52 RBC 5.26 MCV 88.3 MCHC 33.8 RDW 13.8 MPV 8.4 Neutrophils % 65.7 Lymphocytes % 25.3 Monocytes % 6.0 Eosinophils % 2.3 Basophils % 0.7 - Medications Given in the ED: ED Medications Discontinued Medications Generic Name Dose Route Start Last Admin Trade Name Freq PRN Reason Stop Dose Admin Aspirin 162 mg 02/02/19 17:00 02/02/19 19:00 Asa - PO 02/02/19 17:01 162 mg ONCE ONE Administration Medical Decision Making - Medical Decision Making 02/02/19 20:33 The patient is a 53 y/o M with no PMH presents to the ER for chest pain for one week. The patient states his pain started a week ago. The pain is located substernally and radiates to the L shoulder and back. He states that the pain come with both exertion and at rest. He was evaluated in our ER on 01/30/08 and had a troponin of 0.08 at that time with an otherwise normal EKG. He was discharged at that time and the patient followed up with his primary care doctor yesterday and was sent for an exercise stress test. The patient states he was unable to complete the test as he became lightheaded, and nauseous. The patient states the pain got worse during the test and he almost passed out at that time. He currently has chest pain in the exam room. Denies fevers, chills, cough, vomiting, lightheadedness. PCP: Dr. Hills A/P: R/O ACS On exam lungs CTAB, (-) w/r/r. Heart sounds present, S1,S2. No murmurs rubs or gallops Pt with chest pain in the ER intermittently both at rest and after walking Aspirin given EKG: rate: 84 bpm. NSR. Normal intervals and axis. No acute ST-T wave changes Labs are grossly normal today; troponin negative Given that the patient is still having pain at rest that is non-reproducible and that the patient has failed an outpatient stress test, cannot r/o unstable angina at this time. Will place pt in observation. Sign out given to Dr. Mullins *DC/Admit/Observation/Transfer Diagnosis at time of Disposition: Chest pain Qualifiers: Chest pain type: unspecified Qualified Code(s): R07.9 - Chest pain, unspecified - Discharge Dispostion Condition at time of disposition: Stable Decision to Admit order: Yes - Referrals - Patient Instructions - Post Discharge Activity
--- NOTE | 2019-02-03 00:12 | HP ---
CHIEF COMPLAINT: chest pain PCP: at [facility], did not remember name HISTORY OF PRESENT ILLNESS: Bill Mi is a 53 year old male with a past medical history of hypertension , not currently taking any medications, who presented for chest pain. The patient had been having chest pain since January 24 which he described as pressure like located in the front of the chest with occasional radiation to the L back and shoulder. He stated that at its worst the pain is a 10/10 and can last up to 30 minutes and then resolves to a dull 1-2/10 uncomfortable sensation. Pain can present both at rest and with exertion but is more prominent during exertion. He was not doing anything out of the ordinary when the pain first started. He stated that he gets several episodes of this chest pain per day and symptoms associated are shortness of breath, nausea, occasional vomiting, diaphoresis, weakness, lightheadedness, dizziness. He has not had a syncopal episode with the pain but stated that several times he was close. Stated that when he was at work, he had to sit down and take rests on occasion because of the chest pain. Patient presented to [place] ED on 01/30/19 where he was found with elevated troponins of 0.08 and no definitive EKG findings suggestive of infarction and was discharged to follow up with his primary care and for a stress test. The patient went for his stress test today and developed the same symptoms that he was feeling during his episodes of chest pain and was unable to finish his stress test. He presented to the ED for further workup of the pain. Currently stated that he continued to have the chest pain as a dull sensation but was otherwise resting in bed. No current shortness of breath, fever, chills , abdominal pain, nausea, vomiting, constipation, diarrhea, urinary symptoms, numbness, tingling, weakness. ER course was notable for: (1) EKG (2) troponin 0.02-->0.04 PAST MEDICAL HISTORY: as above PAST SURGICAL HISTORY: denies surgical history Social History: Smoking: occasional cigars Alcohol: socially Drugs: denies Lives with , children, parents. Family History: Denies significant family history of heart disease Allergies No Known Allergies Allergy (Verified 02/02/19 17:01) HOME MEDICATIONS: Home Medications Medication Instructions Recorded NK [No Known Home Medication] 11/24/18 REVIEW OF SYSTEMS CONSTITUTIONAL: lightheadedness Absent: fever, chills, generalized weakness, malaise, loss of appetite, weight change HEENT: Absent: rhinorrhea, nasal congestion, throat pain, throat swelling, visual changes CARDIOVASCULAR: chest pain, lightheadedness Absent: syncope, palpitations, irregular heart rate, peripheral edema RESPIRATORY: shortness of breath, dyspnea with exertion Absent: cough, orthopnea, wheezing, stridor, hemoptysis GASTROINTESTINAL: nausea, vomiting Absent: abdominal pain, abdominal distension, diarrhea, constipation GENITOURINARY: Absent: dysuria, frequency, urgency, hesitancy, hematuria, flank pain, MUSCULOSKELETAL: Absent: myalgia, arthralgia, joint swelling, back pain, neck pain SKIN: Absent: rash, itching, pallor HEMATOLOGIC/IMMUNOLOGIC: Absent: easy bleeding, easy bruising, lymphadenopathy, frequent infections ENDOCRINE: Absent: unexplained weight gain, unexplained weight loss, heat intolerance, cold intolerance NEUROLOGIC: dizziness Absent: headache, focal weakness or paresthesias, unsteady gait, seizure, mental status changes PSYCHIATRIC: Absent: anxiety, depression, suicidal or homicidal ideation, hallucinations. PHYSICAL EXAMINATION Vital Signs - 24 hr 02/02/19 02/02/19 16:58 21:08 Temperature 98.5 F Pulse Rate 76 Pulse Rate [ 74 Right Radial] Respiratory 19 18 Rate Blood Pressure 136/94 Blood Pressure 157/91 [Right Arm] O2 Sat by Pulse 96 97 Oximetry (%) GENERAL: Awake, alert, and fully oriented, in no acute distress. HEAD: Normal with no signs of trauma. EYES: Pupils equal, round and reactive to light, extraocular movements intact, sclera anicteric, conjunctiva clear. EARS, NOSE, THROAT: Oropharynx clear without exudates. Moist mucous membranes. NECK: Normal range of motion, supple without lymphadenopathy, JVD. LUNGS: Breath sounds equal, clear to auscultation bilaterally. No wheezes, and no crackles. No accessory muscle use. HEART: Regular rate and rhythm, normal S1 and S2 without murmur, rub. ABDOMEN: Soft, nontender, not distended, normoactive bowel sounds, no guarding, no rebound, no masses. MUSCULOSKELETAL: Normal range of motion at all joints. No bony deformities or tenderness. UPPER EXTREMITIES: 2+ pulses, warm, well-perfused. No cyanosis. No clubbing. No peripheral edema. LOWER EXTREMITIES: 2+ pulses, warm, well-perfused. No calf tenderness. No peripheral edema. NEUROLOGICAL: Cranial nerves II-XII intact. 5/5 muscle strength bilaterally upper and lower extremities. PSYCHIATRIC: Cooperative. Good eye contact. Appropriate mood and affect. SKIN: Warm, dry, normal turgor, no rashes or lesions noted, normal capillary refill. Laboratory Results - last 24 hr 02/02/19 02/02/19 02/02/19 17:52 17:52 17:52 WBC 9.2 RBC 5.26 Hgb 15.7 Hct 46.4 MCV 88.3 MCH 29.9 MCHC 33.8 RDW 13.8 Plt Count 207 MPV 8.4 Absolute Neuts (auto) 6.1 Neutrophils % 65.7 Lymphocytes % 25.3 Monocytes % 6.0 Eosinophils % 2.3 Basophils % 0.7 Nucleated RBC % 0 PT with INR 12.50 INR 1.06 Sodium 139 Potassium 3.7 Chloride 105 Carbon Dioxide 29 Anion Gap 6 L BUN 13.6 Creatinine 1.1 Est GFR (CKD-EPI)AfAm 87.13 Est GFR (CKD-EPI)NonAf 75.17 Random Glucose 75 Hemoglobin A1c % Calcium 9.7 Magnesium 2.6 H Total Bilirubin 0.4 AST 26 ALT 24 Alkaline Phosphatase 52 Creatine Kinase 416 H Creatine Kinase Index 0.2 CK-MB (CK-2) 1.1 Troponin I 0.02 Total Protein 7.8 Albumin 4.1 Triglycerides 158 H Cholesterol 273 H Total LDL Cholesterol 164 H HDL Cholesterol 61 H Lipase 87 Urine Color Urine Appearance Urine pH Ur Specific [place] Urine Protein Urine Glucose (UA) Urine Ketones Urine Blood Urine Nitrite Urine Bilirubin Urine Urobilinogen Ur Leukocyte Esterase Urine WBC (Auto) Urine RBC (Auto) Urine Casts (Auto) U Epithel Cells (Auto) Urine Bacteria (Auto) 02/02/19 02/02/19 02/02/19 17:52 23:05 23:13 WBC RBC Hgb Hct MCV MCH MCHC RDW Plt Count MPV Absolute Neuts (auto) Neutrophils % Lymphocytes % Monocytes % Eosinophils % Basophils % Nucleated RBC % PT with INR INR Sodium Potassium Chloride Carbon Dioxide Anion Gap BUN Creatinine Est GFR (CKD-EPI)AfAm Est GFR (CKD-EPI)NonAf Random Glucose Hemoglobin A1c % 5.9 Calcium Magnesium Total Bilirubin AST ALT Alkaline Phosphatase Creatine Kinase 380 H Creatine Kinase Index No Result Required. CK-MB (CK-2) < 1.0 Troponin I 0.04 Total Protein Albumin Triglycerides Cholesterol Total LDL Cholesterol HDL Cholesterol Lipase Urine Color Yellow Urine Appearance Clear Urine pH 6.0 Ur Specific [place] 1.025 Urine Protein Negative Urine Glucose (UA) Negative Urine Ketones Negative Urine Blood 2+ H Urine Nitrite Negative Urine Bilirubin Negative Urine Urobilinogen 1.0 Ur Leukocyte Esterase Negative Urine WBC (Auto) 1 Urine RBC (Auto) 21 Urine Casts (Auto) 3 U Epithel Cells (Auto) 0.8 Urine Bacteria (Auto) 3.0 EKG--> NR, T wave inversion in lead III, QTc 453 ASSESSMENT/PLAN: Bill Mi is a 53 year old male with a past medical history of hypertension who presents for chest pain. Chest Pain HLD Hematuria Chest Pain - presenting with typical anginal chest pain in setting of a failed stress test , previous troponemia - Heart Score 4, (1-2 risk factors, age 53, highly suspicious history) - cardiology consultation, may need cardiac cath in setting of failed stress test - troponins 0.02-->0.04, continue to trend - CK 416-->380, continue to trend for reinfarction - Echo ordered - repeat EKG in morning - lipids showing elevated LDL and total cholesterol, would benefit from Lipitor 40mg - A1C 5.9 - close blood pressure monitoring - continuous cardiac monitoring - repeat CXR - continue aspirin 81mg - protonix 40mg - nitro prn - metoprolol 25mg bid - need to obtain results of stress test from [facility] HLD - elevated lipids, cholesterol 273, LDL 164, HDL 61, trig 158 - levels drawn not fasting, may be transiently elevated however in setting of chest pain with likely anginal pain can still recommend starting Lipitor 40mg Hematuria - 2+ blood, 21 RBC - unknown cause, has history of smoking - can consider nephrology consult as patient has a history of hematuria - renal/bladder U/S - urology consult, can consider inpatient vs outpatient scope FEN - no standing fluids - continue to monitor electrolytes and replete as necessary - sodium controlled diet Prophylaxis - heparin 5000 units subq tid Code - full code RAYNE PINA DO - PGY-1 Visit type - Emergency Visit Emergency Visit: Yes ED Registration Date: 02/02/19 Care time: The patient presented to the Emergency Department on the above date and was hospitalized for further evaluation of their emergent condition. - New Patient This patient is new to me today: Yes Date on this admission: 02/03/19 - Critical Care Critical Care patient: No
[2019-02-03] MEDS ORDERED: NITROGLYCERIN SUBLINGUAL 1/150 0.4 MG TAB SL PRN (01:45)
[2019-02-03] MEDS ORDERED: HEPARIN NA (PORCINE) 5,000 UNITS/ML 1ML VIAL SQ SCH ×2 (02:00→06:00)
--- NOTE | 2019-02-03 02:37 | PN ---
Teaching Attending Note Name of Resident: Marvin Alamo ATTENDING PHYSICIAN STATEMENT I saw and evaluated the patient. I reviewed the resident's note and discussed the case with the resident. I agree with the resident's findings and plan as documented. SUBJECTIVE: 53 year old male with a past medical history of hypertension dyslipidemia, not currently taking any medications, who presented for chest pain present for the last 1-2 weeks. Seen in ER 01/31, found to have mildly elevated trop- 0.08, normal ekg, cxr, sent home with outpatient cardiac stress test which he could not complete due to chest pain. chest pain currently about 2/10, nonradiating, no sob, says it improved after ASA. No family hx of cardiac disease, or significant smoking history. OBJECTIVE: Last Vital Signs Temp Pulse Resp BP Pulse Ox 98.5 F 88 18 157/91 97 02/02/19 16:58 02/03/19 01:39 02/03/19 01:39 02/02/19 21:08 02/03/19 01:39 generAL -NAD, AAOX3 heent at, nc, moist oral mucosa neck supple cv -s1+s2+rrr chest clear, no rashes on skin abdomen soft ext -no pedal edema Abnormal Lab Results 02/02/19 02/02/19 02/02/19 17:52 17:52 23:05 Anion Gap 6 L Magnesium 2.6 H Creatine Kinase 416 H 380 H Triglycerides 158 H Cholesterol 273 H Total LDL Cholesterol 164 H HDL Cholesterol 61 H Urine Blood 2+ H imaging reviewed ASSESSMENT AND PLAN: #chest pain - r/o acs, risk factors- htn, dlp. Initial trop was negative. DD includes costochondritis gerd, pud, gastritis -tele-obs -asa -ngl prn -statin -echo -cxr -trend troponin -cardiology consult - consider to repeat stress test vs angiography -empiric protonix for possible gastritis #HTN- unoconctrolled -metoprolol 25mg po bid dvt ppx - heparin sc 2g na diet
[2019-02-03] MEDS ORDERED: HEPARIN NA (PORCINE) 5,000 UNITS/ML 1ML VIAL ONE (06:12)
[2019-02-03 07:11] LABS: BASO % 0.6 % (0-2.0); EOS % 2.5 % (0-4.5); HEMATOCRIT 42.9 % (35.4-49); HEMOGLOBIN 14.6 GM/dL (11.7-16.9); MCHC 34.1 g/dl (32.0-35.9); MEAN CELL VOLUME 88.1 fl (80-96); MEAN PLT VOLUME 8.7 fl (7.5-11.1); NEUT % 68.9 % (42.8-82.8); PLATELET COUNT 203 K/MM3 (134-434); RBC 4.87 M/mm3 (4.00-5.60); RDW 13.8 % (11.9-15.9); WHITE BLOOD COUNT 9.3 K/mm3 (4.0-10.0)
[2019-02-03 07:33] LABS: BLOOD UREA NITROGEN 12.8 mg/dL (7-18); CALCIUM 9.2 mg/dL (8.5-10.1); CREATININE 1.1 mg/dL (0.55-1.3); MAGNESIUM 2.5 mg/dL (1.8-2.4); POTASSIUM 3.7 mmol/L (3.5-5.1)
[2019-02-03] MEDS ORDERED: CLOPIDOGREL BISULFATE 300 MG TABLET PO ONE (08:37)
[2019-02-03] MEDS ORDERED: HEPARIN NA (PORCINE) 5,000 UNITS/ML 1ML VIAL IVPUSH PRN ×2 (08:38)
[2019-02-03] MEDS ORDERED: HEPARIN - 25,000 UNIT in SODIUM CHLORIDE 495 ML IV SCH (08:45)
[2019-02-03] MEDS ORDERED: HEPARIN INFUSION - 25,000 UNITS/500 ML INFUS.BAG IVPB ONE (08:46)
--- NOTE | 2019-02-03 08:55 | DS ---
Physical Exam: SUBJECTIVE: Patient seen and examined; being transferred to [facility] for NSTEMI; discussed with cardiology. Reviewed cart; patient remains afebrile and hemodynamically stable; some hypertensive BP readings but all <160mmHg. Troponin is trending up to 0.07. Will coordinate transfer with cardiology services; appreciate expert consultation. Per HPI on admission: "53 year old male with a past medical history of hypertension dyslipidemia, not currently taking any medications, who presented for chest pain present for the last 1-2 weeks. Seen in ER 01/31, found to have mildly elevated trop- 0.08, normal ekg, cxr , sent home with outpatient cardiac stress test which he could not complete due to chest pain. chest pain currently about 2/10, nonradiating, no sob, says it improved after ASA. No family hx of cardiac disease, or significant smoking history." Seen by urology and recommended OP workup for microscopic hematuria Cardiology recommended asa, statin, plavix load, transfer and echo. Dr. Brown arranged for transfer to [facility] PE unchanged from overnight EKG reviewed NAD, AAO, resting in bed RRR s1/2 Lungs CTAB, w/ sym exp NT ND +BS CN2-12 wnl, no fnd Normal mood, appropriate behavior Echo done; read pending OBJECTIVE: Vital Signs Period Temp Pulse Resp BP Sys/[place] Pulse Ox Last 24 Hr 98.5 F-98.6 F 74-88 18-19 136-157/91-106 96-99 PHYSICAL EXAM LABS Laboratory Results - last 24 hr 02/02/19 02/02/19 02/02/19 17:52 17:52 17:52 WBC 9.2 RBC 5.26 Hgb 15.7 Hct 46.4 MCV 88.3 MCH 29.9 MCHC 33.8 RDW 13.8 Plt Count 207 MPV 8.4 Absolute Neuts (auto) 6.1 Neutrophils % 65.7 Lymphocytes % 25.3 Monocytes % 6.0 Eosinophils % 2.3 Basophils % 0.7 Nucleated RBC % 0 PT with INR 12.50 INR 1.06 Sodium 139 Potassium 3.7 Chloride 105 Carbon Dioxide 29 Anion Gap 6 L BUN 13.6 Creatinine 1.1 Est GFR (CKD-EPI)AfAm 87.13 Est GFR (CKD-EPI)NonAf 75.17 Random Glucose 75 Hemoglobin A1c % Calcium 9.7 Magnesium 2.6 H Total Bilirubin 0.4 AST 26 ALT 24 Alkaline Phosphatase 52 Creatine Kinase 416 H Creatine Kinase Index 0.2 CK-MB (CK-2) 1.1 Troponin I 0.02 Total Protein 7.8 Albumin 4.1 Triglycerides 158 H Cholesterol 273 H Total LDL Cholesterol 164 H HDL Cholesterol 61 H Lipase 87 TSH Urine Color Urine Appearance Urine pH Ur Specific [place] Urine Protein Urine Glucose (UA) Urine Ketones Urine Blood Urine Nitrite Urine Bilirubin Urine Urobilinogen Ur Leukocyte Esterase Urine WBC (Auto) Urine RBC (Auto) Urine Casts (Auto) U Epithel Cells (Auto) Urine Bacteria (Auto) 02/02/19 02/02/19 02/02/19 17:52 23:05 23:13 WBC RBC Hgb Hct MCV MCH MCHC RDW Plt Count MPV Absolute Neuts (auto) Neutrophils % Lymphocytes % Monocytes % Eosinophils % Basophils % Nucleated RBC % PT with INR INR Sodium Potassium Chloride Carbon Dioxide Anion Gap BUN Creatinine Est GFR (CKD-EPI)AfAm Est GFR (CKD-EPI)NonAf Random Glucose Hemoglobin A1c % 5.9 Calcium Magnesium Total Bilirubin AST ALT Alkaline Phosphatase Creatine Kinase 380 H Creatine Kinase Index No Result Required. CK-MB (CK-2) < 1.0 Troponin I 0.04 Total Protein Albumin Triglycerides Cholesterol Total LDL Cholesterol HDL Cholesterol Lipase TSH Urine Color Yellow Urine Appearance Clear Urine pH 6.0 Ur Specific [place] 1.025 Urine Protein Negative Urine Glucose (UA) Negative Urine Ketones Negative Urine Blood 2+ H Urine Nitrite Negative Urine Bilirubin Negative Urine Urobilinogen 1.0 Ur Leukocyte Esterase Negative Urine WBC (Auto) 1 Urine RBC (Auto) 21 Urine Casts (Auto) 3 U Epithel Cells (Auto) 0.8 Urine Bacteria (Auto) 3.0 02/03/19 02/03/19 06:24 06:24 WBC 9.3 RBC 4.87 Hgb 14.6 Hct 42.9 MCV 88.1 MCH 30.0 MCHC 34.1 RDW 13.8 Plt Count 203 MPV 8.7 Absolute Neuts (auto) 6.4 Neutrophils % 68.9 Lymphocytes % 22.0 Monocytes % 6.0 Eosinophils % 2.5 Basophils % 0.6 Nucleated RBC % 0 PT with INR INR Sodium 140 Potassium 3.7 Chloride 107 Carbon Dioxide 28 Anion Gap 6 L BUN 12.8 Creatinine 1.1 Est GFR (CKD-EPI)AfAm 87.13 Est GFR (CKD-EPI)NonAf 75.17 Random Glucose 98 Hemoglobin A1c % Calcium 9.2 Magnesium 2.5 H Total Bilirubin AST ALT Alkaline Phosphatase Creatine Kinase Creatine Kinase Index CK-MB (CK-2) Troponin I 0.07 H Total Protein Albumin Triglycerides Cholesterol Total LDL Cholesterol HDL Cholesterol Lipase TSH 1.06 Urine Color Urine Appearance Urine pH Ur Specific [place] Urine Protein Urine Glucose (UA) Urine Ketones Urine Blood Urine Nitrite Urine Bilirubin Urine Urobilinogen Ur Leukocyte Esterase Urine WBC (Auto) Urine RBC (Auto) Urine Casts (Auto) U Epithel Cells (Auto) Urine Bacteria (Auto) HOSPITAL COURSE: Date of Admission:02/02/19 Date of Discharge: 02/03/19 Minutes to complete discharge: 45 Discharge Summary Reason For Visit: CHEST PAIN Current Active Problems Chest pain (Acute) Condition: Stable - Instructions Diet, Activity, Other Instructions: You were in the hospital because of chest pain. You are being transferred to another facility. You will need to follow up with Dr. Brown, cardiology. Please speak with your doctors there before being discharged to see what medications you will need to take and which other doctors you will need to see. Referrals: Macario Brown MD [Staff Physician] - Disposition: TRANSFER ACUTE CARE/OTHER HOSP - Home Medications Comprehensive Discharge Medication List: Ambulatory Orders NK [No Known Home Medication] 11/24/18 This patient is new to me today: Yes Date on this admission: 02/03/19 Emergency Visit: Yes ED Registration Date: 02/02/19 Care time: The patient presented to the Emergency Department on the above date and was hospitalized for further evaluation of their emergent condition. Critical Care patient: Yes Total Critical Care Time (in minutes): 30 Critical Care Statement: The care of this patient involved high complexity decision making to prevent further life threatening deterioration of the patient 's condition and/or to evaluate & treat vital organ system(s) failure or risk of failure. - Discharge Referral Referred to [facility] Med [facility].C.: No
--- NOTE | 2019-02-03 09:00 | CON.CARD ---
Consult Consult Specialty:: Cardiology Referred by:: Dr. Sutherland Reason for Consultation:: NSTEMI - History of Present Illness Chief Complaint: chest pain History of Present Illness: 53M HLD w/ one week of intermittent substernal chest pressure initially with exertion but last few days at rest with exertional dyspnea developing. Attempted stress test at [facility] yest, could not complete exam and was supposed to have pharm MPI but then sx worsened and he came to ER. His CP subsided w/ SLNTG. No palps No fever, chills No recent travel Initially hypertensive while he was having angina, now improved. Enzymes are on the rise. 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: Alzheimer's, CVA, Dementia, Migraine, Multiple Sclerosis, Peripheral Neuropathy, Parkinson's, Seizure, Syncope, TIA, Vertigo, Other Cardio/Vascular: Yes: HTN, Hyperlipdemia Pulmonary: No: Asthma, Bronchitis, Cancer, COPD, O2 Dependent, Pneumonia, Previously Intubated, Pulmonary Embolus, Pulmonary Fibrosis, Sleep Apnea, Other Gastrointestinal: No: Ascites, Cancer, Constipation, Crohn's Disease, Diverticulitis, Diverticulosis, Esophageal Varices, Gastritis, GERD, GI Bleed, Hemorrhoids, Hiatal Hernia, Inflamatory Bowel Disease, Irritable Bowel Disease, Pancreatitis, Peptic Ulcer Disease, Ulcerative Colitis, Other Hepatobiliary: No: Cirrhosis, Cholelithiasis, Cholecystitis, Choledocholithiasis , Hepatitis A, Hepatitis B, Hepatitis C, Other Renal/: No: Renal Failure, Renal Inusuff, BPH, Cancer, Hematuria, Hemodialysis , Neurogenic Bladder, Renal Calculi, UTI, Other Heme/Onc: No: Anemia, B12 Deficiency, Bleeding Disorder, Cancer, Current Chemotherapy, Current Radiation Therapy, Hemochromatosis, Hypercoaguable State, Myeloproliferative Synd, Sickle Cell Disease, Sickle Cell Trait, Thrombocytopenia, Other Infectious Disease: No: AIDS, C-Diff, Herpes Zoster, HIV, MRSA, STD's, Tuberculosis, VREF, Other Psych: No: Addictions, Anxiety, Bipolar, Depression, Panic, Psychosis, Schizophrenia, Other Musculoskeletal: No: Bursitis, Chronic low back pain, Hemiparesis, Hemiplegia, Osteoarthritis, Paraplegia, Other Rheumatology: No: Fibromyalgia, Gout, Lupus, Rheumatoid Arthritis, Sarcoidosis, Vasculitis, Other ENT: No: Allergic Rhinitis, Sinusitis, Other Endocrine: No: K[place]'s Disease, [place]'s Disease, Diabetes Insipidus, Diabetes Mellitus, Hyperparathyroidism, Hyperthyroidism, Hypothyroidism, Osteopenia, SIADH, Other Dermatology: No: Basal Cell, Cellulitis, Eczema, Melanoma, Psoriasis, Squamous Cell, Other - Past Surgical History Past Surgical History: No: None, AAA Repair, AICD, Amputation, Appendectomy, Arthrosocopy, AV Fistula/Graft, Bariatric Surgery, Breast Biopsy, Bypass, CABG, Carotid Endarterectomy, Cataract Removal, Cholecystectomy, Colectomy, Colonoscopy, Colostomy, Craniotomy, , Cystectomy, Hernia Repair, Hysterectomy, Ileal Conduit, Ileosotomy, Joint Replacement, Kidney Transplant, Laminectomy, Liver Transplant, Mastectomy, Nephrectomy, Oopherectomy, Orchiectomy, Permanent Pacemaker, Prostatectomy, Splenectomy, Stent, Thoracotomy , TURP, Tonsillectomy, Tubal Ligation, Upper Endoscopy, Valve Replacement, Vasectomy, Vein Stripping/Ligation - Alcohol/Substance Use Hx Alcohol Use: No - Smoking History Smoking history: Never smoked Have you smoked in the past 12 months: No - Social History Usual Living Arrangement: With Spouse History of Recent Travel: No Home Medications - Allergies Allergies/Adverse Reactions: Allergies Allergy/AdvReac Type Severity Reaction Status Date / Time No Known Allergies Allergy Verified 02/02/19 17:01 - Home Medications Home Medications: Ambulatory Orders NK [No Known Home Medication] 11/24/18 Family Disease History - Family Disease History Family History: Unremarkable (no early CAD) Review of Systems - Review of Systems Constitutional: reports: No Symptoms Eyes: reports: No Symptoms HENT: reports: No Symptoms Neck: reports: No Symptoms Cardiovascular: reports: Chest Pain, Shortness of Breath Respiratory: reports: SOB on Exertion Gastrointestinal: reports: No Symptoms Genitourinary: reports: No Symptoms Breasts: reports: No Symptoms Reported Musculoskeletal: reports: No Symptoms Integumentary: reports: No Symptoms Neurological: reports: No Symptoms Endocrine: reports: No Symptoms Hematology/Lymphatic: reports: No Symptoms Psychiatric: reports: No Symptoms - Risk Factors Known Risk Factors: Yes: Hypercholesterolemia, Hypertension Vital Signs: Vital Signs Temperature 98.6 F 02/03/19 04:30 Pulse Rate 84 02/03/19 05:37 Respiratory Rate 18 02/03/19 05:37 Blood Pressure 139/92 02/03/19 05:37 O2 Sat by Pulse Oximetry (%) 99 02/03/19 04:30 Constitutional: Yes: No Distress, Calm Eyes: Yes: Conjunctiva Clear, EOM Intact HENT: Yes: Atraumatic, Normocephalic Neck: Yes: Trachea Midline Respiratory: Yes: CTA Bilaterally Gastrointestinal: Yes: Soft JVD: No Carotid Bruit: No PMI: Non-Displaced Heart Sounds: Yes: S1, S2 (rrr, no M) Edema: No Peripheral Pulses WNL: Yes Neurological: Yes: Alert, Oriented - Other Data Labs, Other Data: CBC, BMP 02/03/19 06:24 02/03/19 06:24 INR, PTT INR 1.06 (0.83-1.09) 02/02/19 17:52 Troponin, BNP 02/02/19 02/02/19 02/03/19 17:52 23:05 06:24 Troponin I 0.02 0.04 0.07 H Troponin, BNP 02/02/19 02/02/19 02/03/19 17:52 23:05 06:24 Troponin I 0.02 0.04 0.07 H nsr 84, LAE, no acute st changes Echo: Pending Imaging - Results Chest X-ray: Pending EKG: Image Reviewed Assessment/Plan IMP: NSTEMI Hyperlipidemia HTN, chronic REC: 1. ASA, Plavix load, start UFH gtts 2. Add high intensity statin 3. Echo 4. For tx to [facility] for cath Case d/w pt accepts tx Dr. Islas aware, accepted pt
--- NOTE | 2019-02-03 09:39 | CON.GU ---
Consult Consult Specialty:: Referred by:: ED Reason for Consultation:: microhematuria - History of Present Illness Chief Complaint: microhematuria History of Present Illness: 53 year old male being evaluated for a possible STEMI. He is noted to have microhematuria. He denies any specific history or symptoms. 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: Alzheimer's, CVA, Dementia, Migraine, Multiple Sclerosis, Peripheral Neuropathy, Parkinson's, Seizure, Syncope, TIA, Vertigo, Other Cardio/Vascular: Yes: HTN, Hyperlipdemia Pulmonary: No: Asthma, Bronchitis, Cancer, COPD, O2 Dependent, Pneumonia, Previously Intubated, Pulmonary Embolus, Pulmonary Fibrosis, Sleep Apnea, Other Gastrointestinal: No: Ascites, Cancer, Constipation, Crohn's Disease, Diverticulitis, Diverticulosis, Esophageal Varices, Gastritis, GERD, GI Bleed, Hemorrhoids, Hiatal Hernia, Inflamatory Bowel Disease, Irritable Bowel Disease, Pancreatitis, Peptic Ulcer Disease, Ulcerative Colitis, Other Hepatobiliary: No: Cirrhosis, Cholelithiasis, Cholecystitis, Choledocholithiasis , Hepatitis A, Hepatitis B, Hepatitis C, Other Renal/: Yes: Hematuria. No: Renal Failure, Renal Inusuff, BPH, Cancer, Hemodialysis, Neurogenic Bladder, Renal Calculi, UTI, Other Infectious Disease: No: AIDS, C-Diff, Herpes Zoster, HIV, MRSA, STD's, Tuberculosis, VREF, Other Psych: No: Addictions, Anxiety, Bipolar, Depression, Panic, Psychosis, Schizophrenia, Other Musculoskeletal: No: Bursitis, Chronic low back pain, Hemiparesis, Hemiplegia, Osteoarthritis, Paraplegia, Other Rheumatology: No: Fibromyalgia, Gout, Lupus, Rheumatoid Arthritis, Sarcoidosis, Vasculitis, Other ENT: No: Allergic Rhinitis, Sinusitis, Other Endocrine: No: [place]'s Disease, Shawn's Disease, Diabetes Insipidus, Diabetes Mellitus, Hyperparathyroidism, Hyperthyroidism, Hypothyroidism, Osteopenia, SIADH, Other Dermatology: No: Basal Cell, Cellulitis, Eczema, Melanoma, Psoriasis, Squamous Cell, Other - Past Surgical History Past Surgical History: No: None, AAA Repair, AICD, Amputation, Appendectomy, Arthrosocopy, AV Fistula/Graft, Bariatric Surgery, Breast Biopsy, Bypass, CABG, Carotid Endarterectomy, Cataract Removal, Cholecystectomy, Colectomy, Colonoscopy, Colostomy, Craniotomy, , Cystectomy, Hernia Repair, Hysterectomy, Ileal Conduit, Ileosotomy, Joint Replacement, Kidney Transplant, Laminectomy, Liver Transplant, Mastectomy, Nephrectomy, Oopherectomy, Orchiectomy, Permanent Pacemaker, Prostatectomy, Splenectomy, Stent, Thoracotomy , TURP, Tonsillectomy, Tubal Ligation, Upper Endoscopy, Valve Replacement, Vasectomy, Vein Stripping/Ligation - Alcohol/Substance Use Hx Alcohol Use: No - Smoking History Smoking history: Never smoked Have you smoked in the past 12 months: No - Social History Usual Living Arrangement: With Spouse History of Recent Travel: No Home Medications - Allergies Allergies/Adverse Reactions: Allergies Allergy/AdvReac Type Severity Reaction Status Date / Time No Known Allergies Allergy Verified 02/02/19 17:01 - Home Medications Home Medications: Ambulatory Orders NK [No Known Home Medication] 11/24/18 Review of Systems - Review of Systems Genitourinary: reports: No Symptoms Physical Exam- Vital Signs: Vital Signs Temperature 98.6 F 02/03/19 09:18 Pulse Rate 83 02/03/19 09:18 Respiratory Rate 16 02/03/19 09:18 Blood Pressure 156/89 02/03/19 09:18 O2 Sat by Pulse Oximetry (%) 98 02/03/19 09:18 Renal/: No: CVA Tenderness - Left, CVA Tenderness - Right Labs: CBC, BMP 02/03/19 06:24 02/03/19 06:24 Problem List - Problems (1) Microhematuria Assessment/Plan: recommend outpatient work up for microhematuria Code(s): R31.29 - OTHER MICROSCOPIC HEMATURIA
[2019-02-03] MEDS ORDERED: metoPROLOL SUCCINATE 25 MG TAB.SR.24H (FP) PO SCH ×2 (10:00)
[2019-02-03] MEDS ORDERED: ASPIRIN 81 MG CHEWABLE TABLETS PO SCH (10:00)
[2019-02-03] MEDS ORDERED: PANTOPRAZOLE 40 MG TABLET (FP) PO SCH (10:00)
--- NOTE | 2019-02-03 10:40 | ECHO ---
Name: ROBE GRACE Exam:Adult Echocardiogram Study Date: 02/03/2019 08:22 AM Age: 53 yrs Reason For Study: EVALUATE HEART FUNCTION Height: 70 in Weight: 198 lb BSA: 2.1 m2 MMode/2D Measurements & Calculations IVSd: 1.1 cm Ao root diam: 2.6 cm LVIDd: 4.3 cm LA dimension: 3.8 cm LVIDs: 3.1 cm LVPWd: 1.0 cm EDV(Teich): 83.9 ml LVOT diam: 2.0 cm ESV(Teich): 37.9 ml Doppler Measurements & Calculations MV E max jon: 55.8 cm/sec Ao V2 max: 125.1 cm/sec MV A max jon: 80.9 cm/sec Ao max P.3 mmHg MV E/A: 0.69 Ao V2 mean: 94.8 cm/sec MV dec time: 0.19 sec Ao mean P.0 mmHg Ao V2 VTI: 26.7 cm ADIEL(I,D): 1.8 cm2 ADIEL(V,D): 2.0 cm2 LV V1 max P.7 mmHg MR max jon: 359.7 cm/sec LV V1 mean P.4 mmHg MR max P.8 mmHg LV V1 max: 81.4 cm/sec LV V1 mean: 55.8 cm/sec LV V1 VTI: 15.7 cm SV(LVOT): 48.3 ml TR max jon: 219.9 cm/sec TR max P.4 mmHg Med Peak E' Jon: 5.9 cm/sec Med E/e': 9.4 Lat Peak E' Jon: 11.6 cm/sec Lat E/e': 4.8 Left Ventricle Left ventricular systolic function is normal. Ejection Fraction = 50-55%. The transmitral spectral Do ppler flow pattern is suggestive of impaired LV relaxation. Right Ventricle The right ventricle is normal in size and function. Atria Normal left and right atrial size and function. Mitral Valve There is no mitral valve stenosis. There is mild mitral regurgitation. Tricuspid Valve The tricuspid valve is not well visualized, but is grossly normal. There is mild tricuspid regurgitat ion. Right ventricular systolic pressure is normal. Aortic Valve The aortic valve opens well. No hemodynamically significant valvular aortic stenosis. No aortic regur gitation is present. Pulmonic Valve The pulmonic valve is not well seen, but is grossly normal. There is no pulmonic valvular stenosis. Great Vessels The aortic root is normal size. There is a linear shadow in the aortic arch which is likely an artifa ct; consider chest CTA if clinically indicated. Pericardium/Pleura There is no pericardial effusion. Interpretation Summary Left ventricular systolic function is normal. Ejection Fraction = 50-55%. There is mild tricuspid regurgitation. Right ventricular systolic pressure is normal. The right ventricle is normal in size and function. There is mild mitral regurgitation. There is no pericardial effusion. There is a linear shadow in the aortic arch which is likely an artifact; consider chest CTA if clinic ally indicated. MD Sorto *Kvein 02/03/2019 10:40 AM
[2019-02-03 10:53] VITALS: BP 154/85; PULSE 87; TEMP 97.8
--- NOTE | 2019-02-03 14:03 | EKG ---
Test Reason : Blood Pressure : / mmHG Vent. Rate : 083 BPM Atrial Rate : 083 BPM P-R Int : 144 ms QRS Dur : 088 ms QT Int : 386 ms P-R-T Axes : 053 -40 -06 degrees QTc Int : 453 ms NORMAL SINUS RHYTHM LEFT AXIS DEVIATION NONSPECIFIC T WAVE ABNORMALITY Confirmed by KIT JI MD ([id number]) on 02/03/2019 2:02:46 PM Referred By: Confirmed By:KIT JI MD
--- NOTE | 2019-02-03 14:09 | EKG ---
Test Reason : Blood Pressure : / mmHG Vent. Rate : 084 BPM Atrial Rate : 084 BPM P-R Int : 140 ms QRS Dur : 088 ms QT Int : 388 ms P-R-T Axes : 055 -25 -01 degrees QTc Int : 458 ms NORMAL SINUS RHYTHM POSSIBLE LEFT ATRIAL ENLARGEMENT WHEN COMPARED WITH ECG OF 30-JAN-2019 18:30, NO SIGNIFICANT CHANGE WAS FOUND Confirmed by KIT JI MD ([id number]) on 02/03/2019 2:09:29 PM Referred By: Confirmed By:KIT JI MD
[2019-02-03] MEDS ORDERED: ATORVASTATIN CA 40 MG TABLET (FP) PO SCH (22:00)
--- NOTE | 2019-02-06 11:33 | EKG ---
Test Reason : Blood Pressure : / mmHG Vent. Rate : 081 BPM Atrial Rate : 081 BPM P-R Int : 156 ms QRS Dur : 086 ms QT Int : 388 ms P-R-T Axes : 049 -25 -06 degrees QTc Int : 450 ms NORMAL SINUS RHYTHM WHEN COMPARED WITH ECG OF 02-FEB-2019 23:41, NO SIGNIFICANT CHANGE WAS FOUND Confirmed by JACKIE LIMON MD ([id number]) on 02/06/2019 11:32:50 AM Referred By: Confirmed By:JACKIE LIMON MD
--- NOTE | 2019-03-16 19:52 | PDOC ---
*Physical Exam - Vital Signs Last Vital Signs Temp Pulse Resp BP Pulse Ox 97.8 F 87 16 154/85 96 02/03/19 10:53 02/03/19 10:53 02/03/19 10:53 02/03/19 10:53 02/03/19 10:53 ED Treatment Course - LABORATORY CBC & Chemistry Diagram: 02/03/19 06:24 02/03/19 06:24 - ADDITIONAL ORDERS Additional order review: 02/02/19 17:52 RBC 5.26 MCV 88.3 MCHC 33.8 RDW 13.8 MPV 8.4 Neutrophils % 65.7 Lymphocytes % 25.3 Monocytes % 6.0 Eosinophils % 2.3 Basophils % 0.7 - Medications Given in the ED: ED Medications Discontinued Medications Generic Name Dose Route Start Last Admin Trade Name Freq PRN Reason Stop Dose Admin Aspirin 162 mg 02/02/19 17:00 02/02/19 19:00 Asa - PO 02/02/19 17:01 162 mg ONCE ONE Administration Aspirin 81 mg 02/03/19 10:00 02/03/19 10:38 Asa - PO 81 mg DAILY ANGELI Administration Clopidogrel Bisulfate 600 mg 02/03/19 08:37 02/03/19 08:50 Plavix - PO 02/03/19 08:38 600 mg ONCE ONE Administration Heparin Sodium (Porcine) 5,000 unit 02/03/19 06:00 02/03/19 06:23 Heparin - SQ 5,000 unit TID ANGELI Administration Heparin Sodium (Porcine) 25, 500 mls @ 20 mls/hr 02/03/19 08:45 02/03/19 10: 41 000 unit/ Sodium Chloride IV 1,000 unit/hr TITR ANGELI 20 mls/hr Titration Protocol 1,000 UNIT/HR Metoprolol Succinate 25 mg 02/03/19 10:00 02/03/19 10:39 Toprol Xl - PO 25 mg DAILY ANGELI Administration Nitroglycerin 0.4 mg 02/03/19 01:45 02/03/19 02:52 Nitrostat - SL 0.4 mg Q5M PRN Administration FOR CHEST PAIN Pantoprazole Sodium 40 mg 02/03/19 10:00 02/03/19 10:39 Protonix - PO 40 mg DAILY ANGELI Administration Medical Decision Making - Medical Decision Making 03/16/19 19:49 Case Reviewed, agree with assessment and plan Discharge - Discharge Information Problems reviewed: Yes Clinical Impression/Diagnosis: Chest pain Qualifiers: Chest pain type: unspecified Qualified Code(s): R07.9 - Chest pain, unspecified Condition: Stable - Admission Yes - Additional Discharge Information Prescription Drug Monitoring Program (I-STOP) results: I-STOP reviewed and no issues identified - Follow up/Referral - Patient Discharge Instructions - Post Discharge Activity
== END 2019-02-03 10:30 | disposition short-term general hospital (02) ==
LOC: JER 16:45 → JERBED 23:09
PROVIDERS: ADMIT Internal Medicine; ATTEND Internal Medicine
PROC: 3E033GC Introduction of Other Therapeutic Substance into Peripheral Vein, Percutaneous Approach (ICD-10-PCS; principal; 2019-02-02)
PROC: 3E013GC Introduction of Other Therapeutic Substance into Subcutaneous Tissue, Percutaneous Approach (ICD-10-PCS; 2019-02-02)
DX: I21.4 Non-ST elevation (NSTEMI) myocardial infarction (principal); R07.9 Chest pain, unspecified; I10 Essential (primary) hypertension; E78.5 Hyperlipidemia, unspecified; R31.29 Other microscopic hematuria; N28.1 Cyst of kidney, acquired
CPT/HCPCS: 36415; 71045-TC-FY; 71275-TC; 74175-TC; 80048; 80053; 80061; 81003; 82550; 82553; 83036; 83690; 83721; 83735; 84443; 84484; 85025; 85610; 93005; 93010; 93306-TC; 99285-25; G0378; J1644; Q9967

== ENCOUNTER 2019-06-11 07:37 | Emergency (ER) | payer BC, OTHER ==
[2019-06-11 07:48] VITALS: BP 154/95; PULSE 71; TEMP 97.4; BMI 27.3
--- NOTE | 2019-06-11 08:07 | PDOC ---
History of Present Illness - General Chief Complaint: RX Refill Stated Complaint: HIGH BLOOD PRESSURE Time Seen by Provider: 06/11/19 07:58 History Source: Patient - History of Present Illness Timing/Duration: other Past History - Past Medical History Allergies/Adverse Reactions: Allergies Allergy/AdvReac Type Severity Reaction Status Date / Time No Known Allergies Allergy Verified 06/11/19 07:45 Home Medications: Ambulatory Orders Aspirin [ASA -] 81 mg PO DAILY tab.chew 02/03/19 Atorvastatin Ca [Lipitor] 40 mg PO HS tablet 02/03/19 Heparin - 1,000 unit IVPUSH PRN PRN vial 02/03/19 Heparin - 5,000 unit IVPUSH PRN PRN vial 02/03/19 Heparin - 5,000 unit SQ Q8H-IV vial 02/03/19 Heparin - 5,000 unit SQ TID vial 02/03/19 Heparin - 25,000 unit IV TITR vial 02/03/19 Metoprolol Succinate [Toprol XL -] 25 mg PO BID tab.sr.24h 02/03/19 Metoprolol Succinate [Toprol XL -] 25 mg PO DAILY tab.sr.24h 02/03/19 Nitroglycerin Sublingual [Nitrostat -] 0.4 mg SL Q5M PRN tab 02/03/19 Pantoprazole Sodium [Protonix -] 40 mg PO DAILY tablet.ec 02/03/19 Metoprolol Succinate 25 mg PO DAILY #30 tab.er.24h 06/11/19 COPD: No HTN: Yes Hypercholesterolemia: Yes Thyroid Disease: No - Surgical History Cardiac Surgery: Yes (stents placed 01/2019) - Psycho Social/Smoking Cessation Hx Smoking History: Never smoked Have you smoked in the past 12 months: No Cigars Per Day: 1 Hx Alcohol Use: No Drug/Substance Use Hx: No Substance Use Type: None Review of Systems - Review of Systems Respiratory: No: Shortness of Breath Cardiac (ROS): No: Chest Pain Neurological: No: Headache, Dizziness *Physical Exam - Vital Signs Last Vital Signs Temp Pulse Resp BP Pulse Ox 97.4 F L 71 18 154/95 98 06/11/19 07:43 06/11/19 07:43 06/11/19 07:43 06/11/19 07:43 06/11/19 07:43 - Physical Exam General Appearance: Yes: Appropriately Dressed. No: Apparent Distress HEENT: positive: Normal Voice Neck: positive: Supple Respiratory/Chest: negative: Respiratory Distress Integumentary: positive: Dry, Warm Neurologic: positive: Fully Oriented, Alert, Normal Mood/Affect Medical Decision Making - Medical Decision Making 06/11/19 08:07 53-year-old male, h/o HTN, CAD w/ 1 stent, here requesting rx for metoprolol. Ran out of meds 4 days ago. No acute medical complaints at this time. Pt is well-appearing and stable. Refill of metoprolol sent to pharmacy. 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
== END 2019-06-11 08:03 | disposition home or self-care (01) ==
LOC: JER 07:37
DX: I25.10 Atherosclerotic heart disease of native coronary artery without angina pectoris (principal); I10 Essential (primary) hypertension; Z95.5 Presence of coronary angioplasty implant and graft; E78.00 Pure hypercholesterolemia, unspecified
CPT/HCPCS: 99281-25

== ENCOUNTER 2022-01-19 08:50 | Emergency (ER) | payer BC, OTHER ==
[2022-01-19 08:58] VITALS: RESP 18; BMI 283.6
[2022-01-19] MEDS ORDERED: ACETAMINOPHEN 1000 MG/100 ML BAG IVPB ONE (09:26)
[2022-01-19] MEDS ORDERED: SODIUM CHLORIDE 0.9% 500 ML INFUS.BAG IV ONE (09:26)
[2022-01-19] MEDS ORDERED: ACETAMINOPHEN INJECTION 100 ML IVPB ONE (09:51)
[2022-01-19 11:03] LABS: BASO % 0.4 % (0-2.0); EOS % 1.3 % (0-4.5); HEMATOCRIT 46.2 % (35.4-49); HEMOGLOBIN 15.8 GM/dL (11.7-16.9); LYMPH % 17.7 % (8-40); MCH 30.8 pg (25.7-33.7); MCHC 34.3 g/dl (32.0-35.9); MEAN CELL VOLUME 89.9 fl (80-96); MEAN PLT VOLUME 8.5 fl (7.5-11.1); MONO % 6.7 % (3.8-10.2); NEUT % 73.9 % (42.8-82.8); PLATELET COUNT 221 10^3/uL (134-434); RBC 5.14 M/mm3 (4.00-5.60); RDW 14.1 % (11.9-15.9); WHITE BLOOD COUNT 8.6 K/mm3 (4.0-10.0)
[2022-01-19 11:31] LABS: CALCIUM 9.9 mg/dL (8.5-10.1)
[2022-01-19 11:32] LABS: ALBUMIN 4.4 g/dl (3.4-5.0); BLOOD UREA NITROGEN 17.9 mg/dL (7-18)
[2022-01-19 11:34] LABS: CREATININE 1.5 mg/dL (0.55-1.3)
[2022-01-19 11:36] LABS: BILIRUBIN,TOTAL 0.8 mg/dL (0.2-1); TOT PROT 8.1 g/dl (6.4-8.2)
[2022-01-19 15:31] VITALS: BP 140/86; PULSE 79; TEMP 98.2
== END 2022-01-19 15:00 | disposition home or self-care (01) ==
LOC: JER 08:50
PROC: 3E033NZ Introduction of Analgesics, Hypnotics, Sedatives into Peripheral Vein, Percutaneous Approach (ICD-10-PCS; principal; 2022-01-19)
DX: K57.92 Diverticulitis of intestine, part unspecified, without perforation or abscess without bleeding (principal)
CPT/HCPCS: 36415; 74176-TC; 80053; 83690; 85025; 99285-25